=== PATIENT | male | born 1950 | race Caucasian/White ===

== ENCOUNTER → 2017-06-18 11:09 | Outpatient (CLI) | payer OTHER, SELFPAY ==
[2017-06-18 14:13] LABS: Absolute Lymphocyte Count 1.89 X10^3/ul (0.83-4.51); Absolute Neutrophil Count 6.3 X10^3/uL (2.0-7.7); Basophil# 0.03 X10^3/uL; Basophil% 0.3 % (0-1); Eosinophil# 0.26 X10^3/uL; Eosinophils% 2.8 % (0-5); Hematocrit 48.6 % (40-54); Hemoglobin 15.5 g/dl (13.0-16.5); Lymphocyte # 1.89 X10^3/ul (4.0); Lymphocyte % 20.6 % (19-41); Mean Corp Hgb Conc 31.9 g/gl (32-36); Mean Corpuscular Hgb 31.3 pg (27.0-32.0); Mean Corpuscular Volume 98.2 fL (80-94); Mean Platelet Vol. 12.1 fl (6.2-12.0); Monocyte# 0.67 X10^3/uL; Monocyte% 7.3 % (0-10); Neutrophil % 68.8 % (47-70); Platelet Count 166 K/mm3 (150-450); RBC Distribution Width CV 13.3 % (11.6-14.6); RBC Distribution Width SD 47.2 fl (35.1-43.9); Red Blood Count 4.95 M/mm3 (4.6-6.2); White Blood Count 9.2 K/mm3 (4.4-11.0)
[2017-06-18 14:17] LABS: POSITIVE COUNT NO; POSITIVE DIFFERENTIAL NO; POSITIVE MORPHOLOGY NO
[2017-06-18 14:43] LABS: ALB/GLOB Ratio 0.9 RATIO (0.9-2.4); AST(SGOT) 18 U/L (15-37); Alanine Aminotransfer ALT/SGPT 33 U/L (16-61); Albumin, Serum 3.6 g/dL (3.2-5.0); Alkaline Phosphatase 84 U/L (45-117); Anion Gap 4 (5-15); BUN 9 mg/dL (7-18); BUN/Creat Ratio 11.4 RATIO (10-20); Calcium,Total 8.9 mg/dL (8.5-10.1); Chloride 101 mmol/L (98-107); Cholesterol 190 mg/dL (200); Creatinine, Serum 0.79 mg/dL (0.70-1.30); EST Glomerular Filtration Rate 104 mL/min (>60); Est Glom Filt Rate - Afr Amer 126 mL/min (>60); Globulin 3.8 g/dL (2.2-4.2); Glucose 121 mg/dL (74-106); High Density Lipoprotein 49 mg/dL; Potassium 4.8 mmol/L (3.5-5.1); Protein, Total 7.4 g/dL (6.4-8.2); Sodium Level 137 mmol/L (136-145); Thyroid Stim Hormone (TSH) 1.18 uIU/mL (0.358-3.74); Triglycerides 90 mg/dL; Very Low Density Lipoprotein 18 mg/dL (5-40)
[2017-06-18 18:33] LABS: Microalbumin,Random Urine 11.5 mg/L (NO RANGE EST.); Microalbumin:Creatinine Ratio 6.8 mg/g CRE (<30 mg/g CRE)
[2017-06-19 09:55] LABS: HEPATITIS B SURFACE AG Negative (Negative); Hepatitis A AB, Total Negative (Negative); Hepatitis A IgM Antibody Negative (Negative); Hepatitis B Core AB IgM Negative (Negative); Hepatitis B Core Ab Total Negative (Negative); Hepatitis C Ab 0.1 s/co ratio (0.0-0.9)
[2017-06-19 13:55] LABS: Hep B Surface Antibodies Non Reactive (.)
== END ==
PROVIDERS: Family Provider Internal Medicine; PCP Internal Medicine; Visit Provider Nurse Practitioner
DX: I10 Essential (primary) hypertension (principal); M25.471 Effusion, right ankle; M25.472 Effusion, left ankle
CPT/HCPCS: 36415; 80053; 80061; 82043; 82570; 84443; 85025; 86704; 86705; 86706; 86708; 86709; 86803; 87340

== ENCOUNTER → 2017-11-27 10:31 | Outpatient (CLI) | payer OTHER, SELFPAY ==
[2017-11-27 11:27] LABS: Color, Urine Yellow (Yellow); Glucose, Dipstick Normal (Normal); Ketone-Dipstick Negative (Negative); Leukocyte Esterase-Dipstick 25 /ul (Negative); Nitrite-Dipstick Negative (Negative); Occult Blood-Urine Negative /ul (Negative); Protein-Dipstick 30 mg/dl (Negative); Urine Bilirubin Dipstick Negative (Negative); Urine Clarity Clear (Clear); Urine Urobilinogen 4 mg/dl (Normal)
[2017-11-27 11:29] LABS: Absolute Lymphocyte Count 2.47 X10^3/ul (0.83-4.51); Absolute Neutrophil Count 5.8 X10^3/uL (2.0-7.7); Basophil# 0.02 X10^3/uL; Basophil% 0.2 % (0-1); Eosinophil# 0.37 X10^3/uL; Eosinophils% 3.9 % (0-5); Hematocrit 44.8 % (40-54); Hemoglobin 14.4 g/dl (13.0-16.5); Lymphocyte # 2.47 X10^3/ul (4.0); Lymphocyte % 26.3 % (19-41); Mean Corp Hgb Conc 32.1 g/gl (32-36); Mean Corpuscular Hgb 31.4 pg (27.0-32.0); Mean Corpuscular Volume 97.8 fL (80-94); Mean Platelet Vol. 12.4 fl (6.2-12.0); Monocyte# 0.69 X10^3/uL; Monocyte% 7.3 % (0-10); Neutrophil # 5.81 X10^3/uL (2.7-7.7); POSITIVE COUNT NO; POSITIVE DIFFERENTIAL NO; POSITIVE MORPHOLOGY NO; Platelet Count 158 K/mm3 (150-450); RBC Distribution Width SD 45.5 fl (35.1-43.9); Red Blood Count 4.58 M/mm3 (4.6-6.2); White Blood Count 9.4 K/mm3 (4.4-11.0)
[2017-11-27 11:40] LABS: Hemoglobin A1c 7.3 % (4.2-6.3)
[2017-11-27 11:46] LABS: Microalbumin,Random Urine 15.3 mg/L (NO RANGE EST.); Microalbumin:Creatinine Ratio 7.9 mg/g CRE (<30 mg/g CRE)
[2017-11-27 11:58] LABS: AST(SGOT) 18 U/L (15-37); Alanine Aminotransfer ALT/SGPT 38 U/L (16-61); Albumin, Serum 3.4 g/dL (3.2-5.0); Alkaline Phosphatase 73 U/L (45-117); Anion Gap 6 (5-15); BUN 16 mg/dL (7-18); BUN/Creat Ratio 19.3 RATIO (10-20); Calcium,Total 8.5 mg/dL (8.5-10.1); Chloride 106 mmol/L (98-107); Cholesterol 170 mg/dL (200); Creatinine, Serum 0.83 mg/dL (0.70-1.30); EST Glomerular Filtration Rate 98 mL/min (>60); Est Glom Filt Rate - Afr Amer 118 mL/min (>60); Globulin 3.5 g/dL (2.2-4.2); Glucose 120 mg/dL (74-106); High Density Lipoprotein 45 mg/dL; PSA,Total - Annual Screen 1.19 ng/mL (0.00-4.00); Potassium 4.5 mmol/L (3.5-5.1); Protein, Total 6.9 g/dL (6.4-8.2); Sodium Level 143 mmol/L (136-145); Triglycerides 70 mg/dL; Very Low Density Lipoprotein 14 mg/dL (5-40)
== END ==
PROVIDERS: Family Provider Nurse Practitioner; PCP Nurse Practitioner; Visit Provider Nurse Practitioner
DX: I10 Essential (primary) hypertension (principal); Z12.5 Encounter for screening for malignant neoplasm of prostate; E11.9 Type 2 diabetes mellitus without complications
CPT/HCPCS: 36415; 80053; 80061; 81002; 82043; 82570; 83036; 84153; 85025; G0103

== ENCOUNTER → 2017-12-08 08:39 | Outpatient (CLI) | payer OTHER, SELFPAY ==
--- NOTE | 2017-12-08 08:47 | ECHOCS_ITS ---
Reason For Study: Dyspnea/ Hypoxemia Procedure This was a 2D Doppler, Color Flow transthoracic echocardiogram. Contrast injection was performed. Exam performed in department. Left Ventricle Mild concentric left ventricular hypertrophy. The estimated ejection fraction is 65 %. Stage 1 diastolic dysfunction. No regional wall motion abnormalities noted. Right Ventricle Normal size and thickness. Normal systolic function. Atria Normal left atrium. Normal right atrium. Normal atrial septum. Mitral Valve The mitral valve is structurally normal. No prolapse or stenosis seen. Tricuspid Valve Normal tricuspid valve. Trivial tricuspid valve insufficiency. Right ventricular systolic pressure estimated to be 41 mmHg. Mild pulmonary hypertension. Aortic Valve Trisinus/trileaflet aortic valve. Mild focal aortic valve thickening. Mild restriction of the aortic valve. Mild aortic stenosis. Peak aortic valve gradient 23 mmHg. Mean aortic valve gradient 9 mmHg. Pulmonic Valve The pulmonic valve is not well visualized. Great Vessels Normal aortic root. Normal arch. Normal inferior vena cava. Inferior vena cava collapse with sniff. Pericardium/Pleural No pericardial effusion. Medication 22 gauge I.V. with prn adaptor inserted into right arm. Diluted definity 2ml given slow IV push to enhance endocardial definition. MMode/2D Measurements & Calculations LVIDd: 4.4 cm IVSd: 1.4 cm LVOT diam: 2.0 cm LVIDs: 2.7 cm LVPWd: 1.5 cm LVOT area: 3.2 cm2 FS: 37.3 % Ao root diam: 3.5 cm LAV(MOD-bp): 48.5 ml LVAd ap4: 44.6 cm2 ACS: 1.4 cm LAV(MOD-bp) Indexed: 19.3 ml/m2 EDV(MOD-sp4): 156.4 ml LA dimension: 4.0 cm LAV(MOD-sp2): 56.4 ml EDV(sp4-el): 159.3 ml LAV(MOD-sp4): 43.3 ml LVAs ap4: 27.0 cm2 ESV(MOD-sp4): 71.4 ml ESV(sp4-el): 70.0 ml EF(MOD-sp4): 54.3 % EF(sp4-el): 56.1 % SV(MOD-sp4): 85.0 ml SV(sp4-el): 89.3 ml Aortic Valve Planimetry: 1.8 cm2 LA A4 area: 17.3 cm2 RA A4 area: 18.8 cm2 Time Measurements MV dec time: 0.20 sec Doppler Measurements & Calculations MV E max baljeet: 76.9 cm/sec Lat Peak E' Baljeet: 11.2 cm/sec Med Peak E' Baljeet: 9.3 cm/sec MV A max baljeet: 95.2 cm/sec E/E' lat: 6.9 E/E' med: 8.3 MV E/A: 0.81 MV V2 max: 94.4 cm/sec MV P1/2t max bajleet: 93.4 cm/sec Ao V2 max: 239.3 cm/sec MV max P.6 mmHg MV P1/2t: 57.5 msec Ao max P.9 mmHg MV V2 mean: 60.7 cm/sec MV dec slope: 475.5 cm/sec2 Ao V2 mean: 132.2 cm/sec MV mean P.7 mmHg MVA(P1/2t): 3.8 cm2 Ao mean P.7 mmHg MV V2 VTI: 24.7 cm Ao V2 VTI: 47.3 cm MVA(VTI): 3.6 cm2 ALLAN(I,D): 1.9 cm2 ALLAN(V,D): 1.7 cm2 LV V1 max: 125.1 cm/sec SV(LVOT): 87.7 ml PA V2 max: 86.7 cm/sec LV V1 max P.3 mmHg LV V1 mean P.9 mmHg LV V1 mean: 78.4 cm/sec LV V1 VTI: 27.1 cm TR max baljeet: 298.1 cm/sec TR max P.5 mmHg Interpretation Summary Mild concentric left ventricular hypertrophy. The estimated ejection fraction is 65 %. Stage 1 diastolic dysfunction. Trivial tricuspid valve insufficiency. Right ventricular systolic pressure estimated to be 41 mmHg. Mild pulmonary hypertension. Mild aortic stenosis. The study was technically difficult. There is no comparison study available. Contrast injection was performed. Ordering Physician: Francisco Hill Referring Physician: Francisco Hill Performed By: Chente Conway RCS
== END ==
PROVIDERS: Family Provider Nurse Practitioner; PCP Nurse Practitioner; Visit Provider Internal Medicine Pulmonary Disease
DX: R06.00 Dyspnea, unspecified (principal); R09.02 Hypoxemia
CPT/HCPCS: 93306; Q9957; A4216; C8929

== ENCOUNTER 2019-03-02 08:16 | Outpatient (RCR) | payer MEDICARE, SELFPAY | END 2019-03-02 23:59 | LOC: DC 08:16 | PROVIDERS: Family Provider Nurse Practitioner; PCP Nurse Practitioner; Visit Provider Nurse Practitioner | DX: Z71.3 Dietary counseling and surveillance (principal); E11.65 Type 2 diabetes mellitus with hyperglycemia | CPT/HCPCS: G0108 ==

== ENCOUNTER 2019-03-29 08:00 | Outpatient (RCR) | payer MEDICARE, SELFPAY | END 2019-04-01 23:59 | LOC: DC 08:00 | PROVIDERS: Family Provider Nurse Practitioner; PCP Nurse Practitioner; Visit Provider Nurse Practitioner | DX: Z71.3 Dietary counseling and surveillance (principal); E11.65 Type 2 diabetes mellitus with hyperglycemia | CPT/HCPCS: 97802; G0108 ==

== ENCOUNTER 2019-05-16 08:29 | Outpatient (RCR) | payer MEDICARE, SELFPAY | END 2019-06-02 23:59 | LOC: DC 08:29 | PROVIDERS: Family Provider Nurse Practitioner; PCP Nurse Practitioner; Visit Provider Nurse Practitioner | DX: Z71.3 Dietary counseling and surveillance (principal); E11.65 Type 2 diabetes mellitus with hyperglycemia | CPT/HCPCS: 97803 ==

== ENCOUNTER 2019-07-25 11:12 | Outpatient (RCR) | payer MEDICARE, SELFPAY | END 2019-07-25 23:59 | disposition home or self-care (01) | LOC: DC 11:12 | PROVIDERS: Family Provider Nurse Practitioner; PCP Nurse Practitioner; Visit Provider Nurse Practitioner | DX: Z71.3 Dietary counseling and surveillance (principal); E11.65 Type 2 diabetes mellitus with hyperglycemia | CPT/HCPCS: 97803 ==

== ENCOUNTER → 2020-07-17 16:37 | Outpatient (CLI) | payer MEDICARE, SELFPAY ==
--- NOTE | 2020-07-17 16:42 | CT_ITS ---
STUDY: CT ABDOMEN AND PELVIS WITH CONTRAST REASON FOR EXAM: Male, 70 years old. ABD PAIN/ SUSPECTED BILIARY OBSTRUCTION RADIATION DOSAGE (If Supplied By Facility): CTDIvol = ( 15.88 ) mGy, DLP = ( 1144.90 ) mGycm TECHNIQUE: Transaxial images were obtained from the dome of the diaphragm to the symphysis pubis with oral contrast. Oral and amp;amp; IV REDICAT and amp;amp; 100 CC ISO 370 was administered. Sagittal and coronal images were reconstructed. Individualized dose optimization techniques were used for this CT. COMPARISON: None. FINDINGS: The visualized lung bases are unremarkable. The visualized portions of the heart are within normal limits. Normal liver. There are surgical clips in the gallbladder fossa consistent with a prior cholecystectomy. Normal spleen. Normal pancreas. Normal bilateral adrenal glands. Normal right kidney. Normal left kidney. Normal visualized stomach. Normal small intestine. There are multiple colonic diverticula consistent with diverticulosis. The appendix is visualized and appears normal. Normal abdominal aorta. Normal inferior vena cava. Normal retroperitoneum. Irregular wall thickening of the posterior wall of the base of the bladder and correlation with cystoscopy would be useful to exclude mass. There is a small umbilical hernia containing fat. Normal osseous structures. CT/Abdomen/Pelvis WITH Contrast IMPRESSION: Irregular wall thickening of the posterior base of the bladder worrisome for mass and correlation with cystoscopy would be useful. Electronically Signed: Eren Huitron MD at 14:30 EDT Tel , Service support ,
[2020-07-17 17:05] LABS: EGFR FINGERSTICK > 60.0000 mL/min (>60)
== END ==
PROVIDERS: PCP Nurse Practitioner; Referring Provider Nurse Practitioner; Visit Provider Nurse Practitioner
DX: R10.9 Unspecified abdominal pain (principal)
CPT/HCPCS: 74177; Q9967

== ENCOUNTER 2020-08-21 07:37 | Day surgery (SDC) | payer MEDICARE, SELFPAY ==
[2020-08-05 10:32] VITALS: BMI 40.0
--- NOTE | 2020-08-16 12:59 | EKG12_ITS ---
Test Reason : PREOP Blood Pressure : / mmHG Vent. Rate : 096 BPM Atrial Rate : 096 BPM P-R Int : 176 ms QRS Dur : 138 ms QT Int : 372 ms P-R-T Axes : 050 067 052 degrees QTc Int : 469 ms Sinus rhythm with Fusion complexes and Premature atrial complexes Right bundle branch block Abnormal ECG Confirmed by MAZIN DE LEON, ALEX ([id number]), dictionary editor ALYSA SMITH ([id number]) on 08/19/2020 8:46:41 AM Referred By: Jaden Adkins Confirmed By:ALEX RETANA MD
[2020-08-16 15:23] LABS: Hematocrit 46.1 % (40-54); Mean Corp Hgb Conc 32.5 g/dL (32-36); Mean Corpuscular Hgb 30.8 pg (27.0-32.0); Mean Corpuscular Volume 94.7 fL (80-94); Mean Platelet Vol. 11.7 fl (6.2-12.0); Platelet Count 243 K/mm3 (150-450); RBC Distribution Width CV 12.4 % (11.6-14.6); RBC Distribution Width SD 43.4 fl (35.1-43.9); Red Blood Count 4.87 M/mm3 (4.6-6.2); White Blood Count 11.4 K/mm3 (4.4-11.0)
[2020-08-16 15:50] LABS: Anion Gap 3 (5-15); BUN 18 mg/dL (7-18); BUN/Creat Ratio 18.9 RATIO (10-20); Calcium,Total 9.3 mg/dL (8.5-10.1); Chloride 103 mmol/L (98-107); Creatinine, Serum 0.95 mg/dL (0.70-1.30); EST Glomerular Filtration Rate 83 mL/min (>60); Est Glom Filt Rate - Afr Amer 100 mL/min (>60); Glucose 100 mg/dL (74-106); Potassium 4.1 mmol/L (3.5-5.1); Sodium Level 135 mmol/L (136-145)
[2020-08-16 15:56] LABS: Hemoglobin A1c 6.1 % (3.8-5.6)
[2020-08-21] VITALS (7 sets, daily range): BP systolic 117–141; BP diastolic 71–82; PULSE 74–89; RESP 16–18; TEMP 36.2–36.9; O2SAT 93–97; BMI 41.2
[2020-08-21] MEDS: Lactated Ringers 1,000 ML 100 ML IV ×2 (08:38→11:07)
[2020-08-21] MEDS: Cefazolin 2 GM in 0.9% Normal Saline 100 ML IV (09:40)
--- NOTE | 2020-08-21 09:45 | PCM.HP.STD ---
Problem List (1) Bladder tumor Status: Acute History of Present Illness Date of Admission: 08/21/20 Chief Complaint: Large bladder tumors The patient is a 70 year old male who presented with gross hematuria and cystoscopy is found to have multiple large bladder tumors around the trigone and bladder neck area today he presents for transurethral resection of these tumors Past Medical History Medical History: Medical History (Last Updated 08/05/20 @ 10:36 by Aimee Kyle) Diabetes mellitus E11.9 h/o back fusion COPD (chronic obstructive pulmonary disease) J44.9 HTN (hypertension) I10 Allergies codeine Adverse Reaction (Verified 08/21/20 08:08) Muscle cramping, GI upset Home Medications: Ambulatory Orders Medication Instructions Recorded aspirin 81 mg tablet,delayed 81 mg PO DAILY 08/05/20 release chlorthalidone 25 mg tablet 25 mg PO DAILY 08/05/20 cholecalciferol (vitamin D3) 25 5,000 unit PO DAILY 08/05/20 mcg (1,000 unit) capsule cyclobenzaprine 5 mg tablet 5 mg PO PRN PRN 08/05/20 lisinopril 10 mg tablet 10 mg PO DAILY 08/05/20 melatonin 3 mg capsule 3 mg PO HS PRN 08/05/20 metformin 500 mg tablet,extended 1,000 mg PO BID 08/05/20 release 24 hr rosuvastatin 5 mg tablet 5 mg PO QODAY 08/05/20 Budesonide/Formoterol 160/4.5 2 puff INHALATION BID PRN 08/14/20 [Symbicort 160/4.5 Mcg Inhaler (SP)] Fluticasone/Vilanterol [Breo 1 puff IH DAILY 08/14/20 Ellipta 200-25 Mcg INH] Surgical History: Surgical History (Last Updated 08/05/20 @ 10:36 by Aimee Kyle) History of cholecystectomy Z90.49 Surgical History: no surgical history Smoking Status: Current every day smoker Tobacco Use: Cigarettes Review of Systems Constitutional: Denies: Chills, Fever, Weight Change HEENT: Denies: Head Aches, Sinus Congestion, Sinus Drainage Cardiovascular: Denies: Chest Pain, Palpitations Respiratory: Denies: Cough, Shortness of breath at rest, Sputum production Gastrointestinal: Denies: Abdominal Pain, Nausea, Vomiting Genitourinary: Denies: Dysuria Musculoskeletal: Denies: Joint Pain, Joint Tenderness Skin: Denies: Rash, Wounds Neurological: Denies: Numbness, Tingling, Focal weakness Psychiatric: Denies: Anxiety, Depression, Homicidal Ideations, Suicidal Ideations Hematologic/ Lymphatic: Denies: Easy Bruising, Easy Bleeding VTE Information - Inpt Only VTE Present on Admission: No - Physical Exam Vitals/I&O's: Vital Signs Temp Pulse Resp BP Pulse Ox 98.5 F 89 18 137/82 H 96 08/21/20 08:18 08/21/20 08:18 08/21/20 08:18 08/21/20 08:18 08/21/20 08:18 Oxygen Delivery Method Room Air Weight: 137.8 kg Body Mass Index (BMI) 41.2 General: Alert, Oriented x3, Cooperative HEENT: Atraumatic, PERRLA, EOMI, Normocephalic Neck: Supple, No JVD, Negative Carotid Bruits Lungs: Clear to auscultation, Normal air movement Cardiovascular: Regular rate, No murmurs Abdomen: Bowel Sounds Present, Soft, Non Tender Extremities: No edema, Capillary Refill Less than 3 Seconds Skin: No rashes, No breakdown Musculoskeletal: No Tenderness to Palpation of Joints or Extremities Neurological: Cranial nerves II-XII grossly intact Psych/Mental Status: Normal Affect, Appropriate Microbiology Past 72 Hours 08/20/20 13:07 Interface Orders SARS-CoV-2 Antigen (Rapid) - Final Current Medications Cefazolin Sodium 2 gm/ Sodium (Chloride) 110 mls @ 150 mls/hr IV PREOP ONE Stop: 08/21/20 10:38 Lactated Ringer's () 1,000 mls @ 100 mls/hr IV .Q10H JENN Last Admin: 08/21/20 08:38 Dose: 100 mls/hr Documented by: Assessment/Plan All Active Problems (Last Updated 08/05/20 @ 10:36 by Aimee Kyle) Bladder tumor (Acute) Plan to proceed with a transurethral resection of bladder tumors multiple enlarged.
--- NOTE | 2020-08-21 09:48 | DCINST_ITS ---
Discharge Diet: Light diet - advance as tolerated Discharge Activity: May not drive while taking narcotic pain medications. Instructions: Treating Bladder Cancer: TUR (Transurethral Resection) Allergies/Adverse Reactions: Allergies codeine Adverse Reaction (Verified 08/21/20 08:08) Muscle cramping, GI upset Medications to take at Discharge aspirin 81 mg tablet,delayed release 81 mg PO DAILY 08/05/20 chlorthalidone 25 mg tablet 25 mg PO DAILY 08/05/20 cholecalciferol (vitamin D3) 25 mcg (1,000 unit) capsule 5,000 unit PO DAILY 08/05/20 cyclobenzaprine 5 mg tablet 5 mg PO PRN PRN 08/05/20 lisinopril 10 mg tablet 10 mg PO DAILY 08/05/20 melatonin 3 mg capsule 3 mg PO HS PRN 08/05/20 metformin 500 mg tablet,extended release 24 hr 1,000 mg PO BID 08/05/20 rosuvastatin 5 mg tablet 5 mg PO QODAY 08/05/20 Budesonide/Formoterol 160/4.5 [Symbicort 160/4.5 Mcg Inhaler (SP)] 2 puff INHALATION BID PRN 08/14/20 Fluticasone/Vilanterol [Breo Ellipta 200-25 Mcg INH] 1 puff IH DAILY 08/14/20 Ciprofloxacin [Cipro] 500 mg PO BID #10 tab 08/21/20 Hydrocodone Bitart/Apap 5-325 [Blackduck 5MG-325MG] 1 tablet PO Q4H PRN PRN 7 Days #14 tablet 08/21/20 The following prescriptions were given: Ciprofloxacin [Cipro] 500 mg PO BID #10 tab Transmission Status: Pending to [facility] Hydrocodone Bitart/Apap 5-325 [Blackduck 5MG-325MG] 1 tablet PO Q4H PRN PRN 7 Days #14 tablet PRN Reason: Pain Transmission Status: Sent to [facility] Primary Care Physician: Chelsea Garcia CHECK EXAMINER, CHECK EXAMINER-C [Primary Care Provider] - Test Results: Test results from this visit will be discussed in further detail at your follow- up appointment, if applicable. Please Follow Up With: Jaden Adkins MD When: in 2 weeks, please call to make an appointment.
--- NOTE | 2020-08-21 09:55 | BLB_PTH ---
PATIENT: ADDI GONG LOC: [facility] U#:[id number] AGE/SX: 70/M ROOM: RE08/21/[address]: Dr. Jaden Adkins MD : 1950 BED: DIS: 08/21/2020 SPEC #: [id number] RECD: 08/21/20 13:17 STATUS: EFFIE RE #: [id number] SURINDER: 08/21/20 09:[address]: Jaden Adkins DEPT: SURGICAL PATHOLOGY RECD BY: Vidya Russell ENTERED: 08/21/20 13:45 SP TYPE: TURB OTHR DR: MD Chelsea Tyler, ASSOCIATE PROJECT MANAGER-C Tissues: Urinary bladder, NOS Procedures: Surgery Specimen Level V HEADER OPERATION: Cysto, transurethral resection bladder tumor, [employer] PRE-OP DIAGNOSIS: Bladder tumor TISSUE SUBMITTED: Bladder tumor MICROSCOPIC DIAGNOSIS Bladder tumor, TUR: Papillary urothelial carcinoma. See cancer checklist below. AM:kellie 08/22/2020 COMMENT BLADDER CANCER (TUR) SUMMARY Procedure: Transurethral resection of bladder (TURBT) Tumor site: Not specified Histologic type: Papillary urothelial carcinoma Histologic grade: 1-2 (WHO, low grade) Tumor configuration: Papillary Muscularis propria : Not present in biopsy. Lymphvascular invasion: Not identified Tumor extension: Confined to urothelium. Additional pathologic findings: None The above summary is in compliance with [employer] [place] [employer] (CAP) Cancer Protocols Checklist and [place] Joint Committee on Cancer (AJCC), Staging Manual, 8th Ed. MICROSCOPIC DESCRIPTION Slides are reviewed. GROSS DESCRIPTION Received in fixative is one container labeled with the patient's name and designated bladder tumor. The specimen consists of multiple irregular fragments of light lennon soft tissue that in aggregate measure 2.5 x 1.5 x 0.2 cm. The specimen is totally submitted in one cassette. / SJ:kellie 08/21/20 TC:0 CPT: 97066
[2020-08-21] MEDS: Lubricating Jelly 60 GM Tube 30 GM TOPICAL (09:59)
--- NOTE | 2020-08-21 10:20 | PCM.OPRPT ---
Problem List (1) Bladder tumor Status: Acute Report of Operation Date of Procedure: 08/21/20 Pre-Operative Diagnosis: bladder tumors multiple, total size greater than 5 cm. Post-Operative Diagnosis: Same Surgery/Procedure Performed:: Cystoscopy transurethral resection of multiple tumors large Description of Surgical Findings:: Patient presented to the hospital for treatment of a tumor that was found in the bladder with a very large bladder tumor. Patient understands is possible it may not be able to resect the entire tumor. Patient also understands is possible that the patient may need multiple procedures or more invasive procedures to cure him of this cancer. Patient was taken back to the operating room after smooth induction of anesthesia the patient was placed supine on the table. The patient was placed in dorsolithotomy position. The urethra and genitals prepped and draped in usual sterile fashion. I went into the bladder with a 30 degree lens and a cystoscope and identified the tumor the tumor was about 5 centimeters in size and occupying dome, left lateral wall and posterior wall of the bladder. The right and left ureteral orifice were identified. The tumor was not involved with ureteral orifice. I then placed the resectoscope and the bladder and resected the entire tumors down to the muscle. And then cauterized the resection base to obtained hemostasis. We then placed the catheter in the bladder and the patient was taken back to the PACU in stable condition. Type of Anesthesia:: General Drains: none
[2020-08-21 11:01] LABS: Bedside Glucose 133 mg/dL (70-110)
[2020-08-21 11:06] LABS: Bedside Glucose 103 mg/dL (70-110)
== END 2020-08-21 12:30 | disposition home or self-care (01) ==
LOC: SDC 07:38 → AC 07:38
PROVIDERS: Anesthesiology; PCP Nurse Practitioner; Referring Provider Urology; Visit Provider Urology
PROC: 0TBB8ZZ Excision of Bladder, Via Natural or Artificial Opening Endoscopic (ICD-10-PCS; CPT 52240; principal; 2020-08-21 09:45)
DX: C67.9 Malignant neoplasm of bladder, unspecified (principal); Z20.822 Contact with and (suspected) exposure to COVID-19; I10 Essential (primary) hypertension; E11.9 Type 2 diabetes mellitus without complications; J44.9 Chronic obstructive pulmonary disease, unspecified; Z79.82 Long term (current) use of aspirin; Z79.84 Long term (current) use of oral hypoglycemic drugs; F17.210 Nicotine dependence, cigarettes, uncomplicated; Z79.899 Other long term (current) drug therapy
CPT/HCPCS: 52240; 36415; 80048; 82962; 83036; 85027; 87426; 88307; 93005; C9803; J7120; J2405

== ENCOUNTER → 2021-01-03 14:38 | Outpatient (CLI) | payer MEDICARE, SELFPAY ==
--- NOTE | 2021-01-03 14:38 | MRI_ITS ---
STUDY: MRI LUMBAR SPINE WITHOUT CONTRAST REASON FOR EXAM: Male, 70 years old. pain TECHNIQUE: Standardized fat and water weighted pulse sequences were obtained in the sagittal and axial planes. COMPARISON: X-ray 08/05/2020 FINDINGS: T12-L1: Normal endplates. Normal disc height, hydration and morphology. Normal bilateral facet joints. Normal central canal and bilateral lateral recesses. Normal bilateral intervertebral neural foramina. Normal lumbar lordosis. There is no substantial scoliosis. Normal conus medullaris that terminates at the L1/L2. L1-2: Normal endplates. Normal disc height, hydration and morphology. Normal bilateral facet joints. Normal central canal and bilateral lateral recesses. Normal bilateral intervertebral neural foramina. L2-3: Normal endplates. Normal disc height, hydration and morphology. Normal bilateral facet joints. Normal central canal and bilateral lateral recesses. Normal bilateral intervertebral neural foramina. L3-4: Normal endplates. Normal disc height, hydration and morphology. Normal bilateral facet joints. Normal central canal and bilateral lateral recesses. Normal bilateral intervertebral neural foramina. L4-5: Normal endplates. Normal disc height, hydration and morphology. Normal bilateral facet joints. Normal central canal and bilateral lateral recesses. Normal bilateral intervertebral neural foramina. L5-S1: Mild broad disc protrusion produces mild spinal stenosis and mild bilateral neural foraminal stenosis. Normal visualized sacral ala. Mild friction related edema in the posterior subcutaneous fat. MRI/Spine Lumbar (Routine) IMPRESSION: Mild focal degenerative disc disease at L5/S1 as described above. Electronically Signed: Eren Huitron MD at 16:19 EDT Tel , Service support ,
== END ==
PROVIDERS: PCP Nurse Practitioner; Referring Provider Orthopaedic Surgery; Visit Provider Orthopaedic Surgery
DX: M48.062 Spinal stenosis, lumbar region with neurogenic claudication (principal)
CPT/HCPCS: 72148

== ENCOUNTER 2021-06-30 16:58 | Outpatient (CLI) | payer MEDICARE, SELFPAY ==
--- NOTE | 2021-06-30 | CYSPIN_PTH ---
PATIENT: ADDI GONG LOC: [facility] U#:[id number] AGE/SX: 71/M ROOM: RE06/30/[address]: Dr. Jaden Adkins MD : 1950 BED: DIS: 06/30/2021 SPEC #: [id number] RECD: 07/01/21 08:08 STATUS: EFFIE REDelmer #: [id number] SURINDER: 06/30/21 00:[address]: Jaden Adkins DEPT: CYTOLOGY RECD BY: Guy Herrera ENTERED: 07/01/21 08:09 SP TYPE: CYSPIN FL OTHR DR: Chelsea Garcia, CALL CENTER COORDINATOR-C Tissues: Urine Procedures: Pap Stain (control) Special Stain Group II Cytospin Fluid HEADER OPERATION: Not noted PRE-OP DIAGNOSIS: Neoplasm of bladder TISSUE SUBMITTED: Urine for cytology DIAGNOSIS CYTOLOGY Urine for cytology (cytospin): Negative for malignant cells. Acute inflammation. See comment. SJ:kellie 07/02/2021 COMMENT Degenerated urothelial cells are also noted. Clinical correlation and appropriate follow up are necessary. Please make reference to previous specimen ([id number]) bladder tumor, TUR with diagnosis of ?papillary urothelial carcinoma.? CYTOLOGY STUDY Slides are reviewed. CYTOLOGY GROSS Received is 40 ml of cloudy gold fluid labeled with the patient's name and and designated per the requisition as urine. Submitted for cytology preparation. / kellie 07/01/2021 TC:2 CPT: 86058
[2021-06-30 17:09] LABS: Cytology, Body Fluid / CSF SEE PATHOLOGY REPORT
== END 2021-06-30 23:59 | disposition home or self-care (01) ==
LOC: LABSPEC 17:00
PROVIDERS: PCP Nurse Practitioner; Referring Provider Urology; Visit Provider Urology
DX: C67.2 Malignant neoplasm of lateral wall of bladder (principal)
CPT/HCPCS: 88108; 88313

== ENCOUNTER 2022-03-16 13:36 | Outpatient (CLI) | payer MEDICARE, SELFPAY ==
--- NOTE | 2022-03-16 13:43 | ECHOCS_ITS ---
Version 2 Reason For Study: Murmur Procedure This was a 2D Doppler, Color Flow transthoracic echocardiogram. The study was technically difficult. Contrast injection was performed. Exam performed in department. Left Ventricle Normal LV size. Mild concentric left ventricular hypertrophy. Left ventricular systolic function is normal. The estimated ejection fraction is 65 %. Stage 1 diastolic dysfunction. No regional wall motion abnormalities noted. Right Ventricle Normal RV size. Normal systolic function. Mitral Valve Normal mitral valve. Tricuspid Valve Normal tricuspid valve. Mild (1+) tricuspid valve insufficiency. Pulmonary artery systolic pressure is 46 mmHg. Aortic Valve Trisinus/trileaflet aortic valve. Mild focal aortic valve calcification. Peak aortic valve gradient 75 mmHg. Mean aortic valve gradient 41 mmHg. Severe aortic stenosis. The above gradients are likely overestimated. Pulmonic Valve The pulmonic valve is not well visualized. Great Vessels Normal aortic root. The pulmonary artery is normal size. Normal inferior vena cava. Pericardium/Pleural No pericardial effusion. Medication 20 gauge I.V. with prn adaptor inserted into right arm. Diluted definity 2.5ml given slow IV push to enhance endocardial definition. MMode/2D Measurements & Calculations LVIDd: 4.8 cm IVSd: 1.2 cm LVOT diam: 2.0 cm LVIDs: 2.6 cm LVPWd: 1.3 cm LVOT area: 3.2 cm2 RVDd: 4.0 cm FS: 46.4 % Ao root diam: 3.7 cm LAV(MOD-bp): 70.6 ml LA A4 area: 23.2 cm2 LA dimension: 4.1 cm LAV(MOD-bp) Indexed: 29.2 ml/m2 LAV(MOD-sp2): 66.1 ml LAV(MOD-sp4): 65.5 ml RA A4 area: 21.0 cm2 Time Measurements MV dec time: 0.20 sec Doppler Measurements & Calculations MV E max baljeet: 79.6 cm/sec Lat Peak E' Baljeet: 5.4 cm/sec Med Peak E' Baljeet: 11.3 cm/sec MV A max baljeet: 122.2 cm/sec E/E' lat: 14.8 E/E' med: 7.0 MV E/A: 0.65 MV V2 max: 119.6 cm/sec MV P1/2t max baljeet: 111.6 cm/sec Ao V2 max: 432.0 cm/sec MV max P.7 mmHg MV P1/2t: 44.4 msec Ao max P.9 mmHg MV V2 mean: 77.5 cm/sec MV dec slope: 735.7 cm/sec2 Ao V2 mean: 302.0 cm/sec MV mean P.8 mmHg Ao mean P.6 mmHg MV V2 VTI: 25.8 cm MVA(P1/2t): 5.0 cm2 Ao V2 VTI: 88.5 cm MVA(VTI): 4.1 cm2 AV (velocity ratio): 0.37 ALLAN(I,D): 1.2 cm2 ALLAN(V,D): 1.2 cm2 LV V1 max: 157.7 cm/sec SV(LVOT): 105.2 ml PA V2 max: 130.2 cm/sec LV V1 max P.0 mmHg LV V1 mean P.0 mmHg LV V1 mean: 114.0 cm/sec LV V1 VTI: 33.0 cm TR max baljeet: 316.7 cm/sec TR max P.2 mmHg ECHO/Echo Complete W/ Contrast Interpretation Summary Normal LV size. Mild concentric left ventricular hypertrophy. Left ventricular systolic function is normal. The estimated ejection fraction is 65 %. Stage 1 diastolic dysfunction. Mean aortic valve gradient 41 mmHg. Severe aortic stenosis. The above gradients are likely overestimated. Ordering Physician: Desiree Larsen Referring Physician: Desiree Larsen Performed By: Chente Conway RCS
== END 2022-03-16 23:59 | disposition home or self-care (01) ==
PROVIDERS: PCP Nurse Practitioner Family; Referring Provider Nurse Practitioner Family; Visit Provider Nurse Practitioner Family
DX: R01.1 Cardiac murmur, unspecified (principal)
CPT/HCPCS: 93306; Q9957; A4216; C8929

== ENCOUNTER 2022-06-08 07:12 | Day surgery (SDC) | payer MEDICARE, SELFPAY ==
--- NOTE | 2022-06-03 11:50 | RAD_ITS ---
INDICATION: as EXAMINATION/TECHNIQUE: X-RAY - XR Chest 2 Views COMPARISON: March 07, 2021. FINDINGS: LINES/DEVICES: None. LUNGS: No consolidation, edema or effusion. No pneumothorax. MEDIASTINUM AND CARDIOVASCULAR STRUCTURES: Cardiac silhouette not enlarged. Central airways and mediastinal contour are unremarkable. BONES AND SOFT TISSUES: Degenerative vertebral changes. RAD/Chest PA and Lateral IMPRESSION: No radiographic evidence of acute cardiopulmonary disease. Electronically Signed: Romero Newman DO at 22:26 EST Reading Location ID and State: [facility] / [place] Tel [phone], Service support ,
[2022-06-03 12:34] LABS: Absolute Lymphocyte Count 2.84 X10^3/uL (0.83-4.51); Absolute Neutrophil Count 7.4 X10^3/uL (2.0-7.7); Basophil# 0.06 X10^3/uL; Basophil% 0.5 % (0-1); Eosinophil# 0.39 X10^3/uL; Eosinophils% 3.4 % (0-5); Hemoglobin 14.9 g/dL (13.0-16.5); Lymphocyte # 2.84 X10^3/ul (0.83-4.51); Lymphocyte % 24.8 % (19-41); Mean Corp Hgb Conc 31.7 g/dL (32-36); Mean Corpuscular Hgb 30.6 pg (27.0-32.0); Mean Corpuscular Volume 96.5 fL (80-94); Mean Platelet Vol. 11.9 fl (6.2-12.0); Monocyte% 6.1 % (0-10); NRBC Flagged by Analyzer 0 % (0-5); Neutrophil # 7.41 X10^3/uL (2.7-7.7); Neutrophil % 64.9 % (47-70); Platelet Count 230 K/mm3 (150-450); RBC Distribution Width CV 12.4 % (11.6-14.6); RBC Distribution Width SD 44.5 fl (35.1-43.9); Red Blood Count 4.87 M/mm3 (4.6-6.2); White Blood Count 11.4 K/mm3 (4.4-11.0)
[2022-06-03 13:00] LABS: AST(SGOT) 8 U/L (15-37); Alanine Aminotransfer ALT/SGPT 15 U/L (16-61); Albumin, Serum 3.5 g/dL (3.2-5.0); Alkaline Phosphatase 67 U/L (45-117); Anion Gap 7 (5-15); BUN 16 mg/dL (7-18); BUN/Creat Ratio 16.5 RATIO (10-20); Bilirubin, Direct 0.11 mg/dL (0.00-0.30); Calcium,Total 9.1 mg/dL (8.5-10.1); Chloride 102 mmol/L (98-107); Cholesterol 187 mg/dL (200); Creatinine, Serum 0.97 mg/dL (0.70-1.30); EST Glomerular Filtration Rate 81 mL/min (>60); Est Glom Filt Rate - Afr Amer 98 mL/min (>60); Globulin 3.7 g/dL (2.2-4.2); Glucose 100 mg/dL (74-106); High Density Lipoprotein 55 mg/dL; Potassium 4.2 mmol/L (3.5-5.1); Protein, Total 7.2 g/dL (6.4-8.2); Sodium Level 139 mmol/L (136-145); Thyroid Stim Hormone (TSH) 1.11 uIU/mL (0.358-3.74); Triglycerides 69 mg/dL; Very Low Density Lipoprotein 14 mg/dL (5-40)
[2022-06-05 10:04] VITALS: BMI 37.4
--- NOTE | 2022-06-08 09:27 | CL.D_ITS ---
Patient Name: ADDI GONG Study Date: 06/08/2022 Performing: Candido Linn MD Ht: 72 inches 182.88 cm : 1950 Wt: 276 lbs 125.19 kg Age: 72 Gender: male BSA: 2.44 PROCEDURE(S) PERFORMED DC02-(31920)C/COR CLINICAL PROFILE AND INDICATIONS Indications: Valvular Disease Heart Failure: None Stress/Imaging Stress/Image Study Performed: No CAD Presentations: Other: Murmur CONCLUSIONS Non obstructive coronary arteries RECOMMENDATIONS Medical therapy DESCRIPTION OF PROCEDURE The patient arrived to the procedure lab. The risks and benefits of the procedure as well as a full description of our services here and current unavailability of surgical backup were fully explained to the patient and/or their significant other prior to the catheterization. The Timeout was completed, verifying the correct patient and procedure. The patient's procedural site was prepped and draped in the usual fashion. Local anesthetic was given subcutaneously to right radial region with Lidocaine 2%. Using a modified Seldinger technique, arterial access was obtained via the right radial artery, a 6Fr sheath was inserted. Right Coronary Artery selective angiography was then performed in multiple views using a 5 Fr. 4.0 [place] catheter. Left Coronary Artery selective angiography was performed in multiple views using a 5 Fr. 4.0 [place] catheter. LV to AO pullback pressures were then recorded.The arterial sheath was pulled and a TR Band was applied for hemostasis CORONARY ANGIOGRAPHY DOMINANCE: Right Dominant LEFT HEART ASSESSMENT Left Ventricular Ejection Fraction: by Echo 60 % Normal LV wall motion Normal Left Ventricular systolic function LEFT MAIN: Angiographically normal LEFT ANTERIOR DESCENDING ARTERY: Mild luminal irregularities CIRCUMFLEX ARTERY: Mild luminal irregularities RAMUS: Mild luminal irregularities RIGHT CORONARY ARTERY: No significant disease noted VALVE FINDINGS: Aortic Valve Calcification - moderate Aortic Valve Stenosis - moderate COMPLICATIONS No Complications PROCEDURE MEDICATIONS Fentanyl 50 mcg IV Versed 1 mg IV Versed 1 mg IV Oxygen: 2 L/min via nasal cannula Heparin given IA 06/08/2022 09:05:09 Verapamil 2.5mg, 3000 units of Heparin given IA 06/08/2022 09:05:09 SUMMARY OF HEMODYNAMIC DATA Time AIR REST ECG 08:33:33 Art 143/75 (100) 08:50:06 AO 127/75 (100) SA 09:06:42 LV 132/8, 17 09:12:34 LV 134/11, 19 09:12:40 LVp 118/67, 74 09:12:54 AOp 118/69 (90) 09:12:59 AIR REST 09:27:05 Signed By Candido Linn MD On 06/08/2022 10:14:10 Signed By Candido Linn MD On 06/08/2022 09:26:49 Candido Linn MD
--- NOTE | 2022-06-08 15:03 | ECHOL_ITS ---
Reason For Study: Aortic stenosis Procedure This was a limited 2D transthoracic echocardiogram. Portable in lab technologist holding room. Left Ventricle Normal LV size. Mild concentric left ventricular hypertrophy. Left ventricular systolic function is normal. The estimated ejection fraction is 60 %. No regional wall motion abnormalities noted. Right Ventricle Normal RV size. Normal systolic function. Atria Normal left atrium. Normal right atrium. Aortic Valve Peak aortic valve gradient 45 mmHg. Mean aortic valve gradient 26 mmHg. Mild aortic stenosis. Pulmonic Valve Normal pulmonic valve. Great Vessels Normal aortic root. The pulmonary artery is normal size. Normal inferior vena cava. Pericardium/Pleural No pericardial effusion. MMode/2D Measurements & Calculations LVIDd: 4.6 cm IVSd: 1.3 cm LVOT diam: 2.1 cm LVIDs: 2.3 cm LVPWd: 1.3 cm LVOT area: 3.6 cm2 RVDd: 3.4 cm FS: 50.2 % Ao root diam: 3.3 cm LAV(MOD-bp): 51.4 ml LA A4 area: 18.7 cm2 LAV(MOD-bp) Indexed: 21.0 ml/m2 LAV(MOD-sp2): 49.3 ml LAV(MOD-sp4): 46.4 ml LA dimension(2D): 3.7 cm RA A4 area: 16.2 cm2 Doppler Measurements & Calculations Ao V2 max: 325.4 cm/sec LV V1 max: 129.7 cm/sec SV(LVOT): 112.6 ml Ao max P.4 mmHg LV V1 max P.7 mmHg Ao V2 mean: 238.5 cm/sec LV V1 mean P.0 mmHg Ao mean P.6 mmHg LV V1 mean: 94.3 cm/sec Ao V2 VTI: 75.8 cm LV V1 VTI: 31.2 cm AV (velocity ratio): 0.41 ALLAN(I,D): 1.5 cm2 ALLAN(V,D): 1.4 cm2 ECHO/Echo, Limited Study Interpretation Summary Normal LV size. Mild concentric left ventricular hypertrophy. Left ventricular systolic function is normal. The estimated ejection fraction is 60 %. Mean aortic valve gradient 26 mmHg. Mild aortic stenosis. Ordering Physician: Candido Linn Referring Physician: Candido Linn Performed By: Ines Muse RDCS
== END 2022-06-08 11:15 | disposition home or self-care (01) ==
PROVIDERS: PCP Nurse Practitioner Family; Referring Provider Internal Medicine Cardiovascular Disease; Visit Provider Internal Medicine Cardiovascular Disease
DX: I35.0 Nonrheumatic aortic (valve) stenosis (principal); J44.9 Chronic obstructive pulmonary disease, unspecified; R01.1 Cardiac murmur, unspecified; I10 Essential (primary) hypertension; E78.5 Hyperlipidemia, unspecified; G47.30 Sleep apnea, unspecified; Z79.82 Long term (current) use of aspirin; F17.200 Nicotine dependence, unspecified, uncomplicated; R93.1 Abnormal findings on diagnostic imaging of heart and coronary circulation
CPT/HCPCS: 36415; 71046; 80048; 80061; 80076; 84443; 85025; 93308; 93454; 99152; 99153; J7040; C1769; C1894; Q9967

== ENCOUNTER → 2023-02-01 | Outpatient (CLI) | payer MEDICARE, SELFPAY ==
--- NOTE | 2023-02-01 16:16 | MRI_ITS ---
STUDY: MRI LUMBAR SPINE WITHOUT CONTRAST REASON FOR EXAM: Male, 72 years old. Pain, spondylosis, intervertebral disc degen TECHNIQUE: Standardized fat and water weighted pulse sequences were obtained in the sagittal and axial planes. COMPARISON: MRI lumbar spine without contrast 01/03/2021. FINDINGS: T12-L1: (Sagittal only). Normal endplates. Normal disc height, hydration and morphology. Normal central canal and bilateral intervertebral neural foramina. Normal lumbar lordosis. There is no substantial scoliosis. Normal conus medullaris that terminates at the upper L1 vertebral body level. L1-2: Normal endplates. Normal disc height, hydration and morphology. Normal bilateral facet joints. Normal central canal and bilateral lateral recesses. Normal bilateral intervertebral neural foramina. L2-3: Normal endplates. Normal disc height, hydration and morphology. Normal bilateral facet joints. Normal central canal and bilateral lateral recesses. Normal bilateral intervertebral neural foramina. L3-4: Normal endplates. Normal disc height, hydration and morphology. Normal bilateral facet joints. Normal central canal and bilateral lateral recesses. Normal bilateral intervertebral neural foramina. L4-5: Normal endplates. Normal disc height, hydration and morphology. Normal bilateral facet joints. Normal central canal and bilateral lateral recesses. Normal bilateral intervertebral neural foramina. L5-S1: Normal endplates. Moderate disc space height narrowing. Normal facet joints. Capacious central canal and bilateral lateral recesses. Mild stenosis of the right intervertebral neural foramen. Normal left intervertebral neural foramen. T1 and T2 dark intensity focus in the right side of the S1 body is unchanged. This may be bone island. Normal visualized sacral ala. Normal visualized paraspinous soft tissue structures. MRI/Spine Lumbar (Routine) IMPRESSION: 1. No MRI evidence of lumbar extruded disc fragment, disc protrusion or nerve root displacement. 2. Mild stenosis of the right L5-S1 intervertebral neural foramen. 3. Probably small bone island in the right side of the S1 body. 4. No significant interval change when compared to 01/03/2021. Electronically Signed: Jenaro Cisneros MD at 15:57 EDT ,
== END | disposition home or self-care (01) ==
LOC: MRI 16:10
PROVIDERS: PCP Nurse Practitioner Family; Referring Provider Orthopaedic Surgery; Visit Provider Orthopaedic Surgery
DX: M51.37 Other intervertebral disc degeneration, lumbosacral region (principal); M47.817 Spondylosis without myelopathy or radiculopathy, lumbosacral region
CPT/HCPCS: 72148

== ENCOUNTER → 2023-02-05 | Outpatient (CLI) | payer MEDICARE, SELFPAY ==
--- NOTE | 2023-02-05 15:37 | MRI_ITS ---
STUDY: MRI RIGHT SHOULDER REASON FOR EXAM: Male, 72 years old. Pain, rule out cuff tear. TECHNIQUE: Standardized fat and water weighted pulse sequences were obtained in all 3 orthogonal planes. COMPARISON: Right shoulder radiographs dated 01/11/2023. FINDINGS: There is mild supraspinatus tendinosis without a full-thickness tear Normal infraspinatus tendon. Normal subscapularis tendon. Normal teres minor tendon. Normal supraspinatus muscle. Normal infraspinatus muscle. Normal subscapularis muscle. Normal teres minor muscle. Normal glenohumeral articulation. Normal humeral head and visualized proximal humerus. Normal biceps labral complex. Normal intracapsular long biceps tendon. Normal labrum. Normal capsulo-ligamentous complex. Normal rotator interval. There is hypertrophic acromioclavicular arthrosis, with inferior osteophyte formation, with mild effacement of the supraspinatus myotendinous junction (coronal PD series 4 image 19). There is a Type II morphology (curved), with a neutral orientation. There is no subacromial-subdeltoid bursal fluid. Normal visualized coracohumeral and coracoacromial ligaments. Normal quadrilateral space. Normal axillary space. Normal deltoid muscle. Normal trapezius muscle. MRI/Upper Ext Joint Only(Routine) IMPRESSION: Mild supraspinatus tendinosis without a full-thickness rotator cuff tear. Hypertrophic acromioclavicular arthrosis, with inferior osteophyte formation, with mild effacement of the supraspinatus myotendinous junction. Electronically Signed: Mic Figueroa MD at 8:40 EDT ,
== END | disposition home or self-care (01) ==
PROVIDERS: PCP Nurse Practitioner Family; Referring Provider Orthopaedic Surgery Sports Medicine; Visit Provider Orthopaedic Surgery Sports Medicine
DX: M25.511 Pain in right shoulder (principal)
CPT/HCPCS: 73221

== ENCOUNTER → 2024-01-11 | Outpatient (CLI) | payer MEDICARE, SELFPAY ==
--- NOTE | 2024-01-11 13:31 | ECHOCS_ITS ---
Reason For Study: AORTIC STENOSIS Procedure This was a 2D Doppler, Color Flow transthoracic echocardiogram. The study was technically difficult. Contrast injection was performed. Exam performed in department. Left Ventricle Normal LV size. Left ventricular systolic function is normal. The left ventricular ejection fraction is 65 %. Stage 1 diastolic dysfunction. No regional wall motion abnormalities noted. Right Ventricle Normal RV size. Normal systolic function. Atria Normal left atrium. Normal right atrium. Mitral Valve Normal mitral valve. Tricuspid Valve Normal tricuspid valve. Aortic Valve Trisinus/trileaflet aortic valve. Moderate focal aortic valve calcification. Peak aortic valve gradient 61 mmHg. Mean aortic valve gradient 40 mmHg. Moderate to severe aortic stenosis. Pulmonic Valve The pulmonic valve is not well visualized. Great Vessels Normal aortic root. The pulmonary artery is normal size. Inferior vena cava collapse with respiration. Pericardium/Pleural No pericardial effusion. MMode/2D Measurements & Calculations LVIDd: 4.4 cm IVSd: 1.5 cm LVOT diam: 2.1 cm LVIDs: 2.3 cm LVPWd: 1.3 cm LVOT area: 3.6 cm2 RVDd: 4.2 cm FS: 47.4 % asc Aorta Diam: 4.0 cm LAV(MOD-bp): 54.8 ml LVAd ap4: 31.1 cm2 LAV(MOD-bp) Indexed: 21.6 ml/m2 LVLd ap4: 8.7 cm LAV(MOD-sp2): 63.5 ml EDV(MOD-sp4): 89.2 ml LAV(MOD-sp4): 47.4 ml EDV(sp4-el): 94.2 ml LVAs ap4: 16.5 cm2 LVLs ap4: 7.2 cm ESV(MOD-sp4): 30.9 ml ESV(sp4-el): 31.9 ml EF(MOD-sp4): 65.3 % EF(sp4-el): 66.1 % LVAd ap2: 29.6 cm2 SV(MOD-sp4): 58.3 ml SV(MOD-sp2): 56.5 ml LVLd ap2: 8.4 cm EDV(MOD-sp2): 83.9 ml EDV(sp2-el): 88.4 ml LVAs ap2: 15.6 cm2 LVLs ap2: 7.3 cm ESV(MOD-sp2): 27.4 ml ESV(sp2-el): 28.4 ml EF(MOD-sp2): 67.4 % SV(sp4-el): 62.2 ml Ao sinus diam: 3.[address] Junction: 3.2 cm LA dimension(2D): 4.3 cm LA A4 area: 18.5 cm2 RA A4 area: 19.7 cm2 TAPSE: 1.9 cm Time Measurements MV dec time: 0.33 sec Doppler Measurements & Calculations MV E max baljeet: 103.6 cm/sec Lat Peak E' Baljeet: 7.6 cm/sec Med Peak E' Baljeet: 10.4 cm/sec MV A max baljeet: 109.8 cm/sec E/E' lat: 13.7 E/E' med: 10.0 MV E/A: 0.94 MV dec slope: 316.0 cm/sec2 Ao V2 max: 388.5 cm/sec LV V1 max: 111.2 cm/sec Ao max P.6 mmHg LV V1 max P.9 mmHg Ao V2 mean: 307.6 cm/sec LV V1 mean P.1 mmHg Ao mean P.4 mmHg LV V1 mean: 85.0 cm/sec Ao V2 VTI: 85.3 cm LV V1 VTI: 25.0 cm AV (velocity ratio): 0.29 ALLAN(I,D): 1.1 cm2 ALLAN(V,D): 1.0 cm2 SV(LVOT): 90.3 ml PA V2 max: 95.4 cm/sec PA max PG (full): 1.2 mmHg ECHO/Echo Complete W/ Contrast Interpretation Summary Normal LV size. Left ventricular systolic function is normal. The left ventricular ejection fraction is 65 %. Stage 1 diastolic dysfunction. Moderate focal aortic valve calcification. Mean aortic valve gradient 40 mmHg. Moderate to severe aortic stenosis. Contrast injection was performed. Ordering Physician: Candido Linn Referring Physician: Candido Linn MD Performed By: Zahra Hernandez RDCS
== END | disposition home or self-care (01) ==
PROVIDERS: PCP Nurse Practitioner Family; Referring Provider Internal Medicine Cardiovascular Disease; Visit Provider Internal Medicine Cardiovascular Disease
DX: I73.9 Peripheral vascular disease, unspecified (principal); I35.0 Nonrheumatic aortic (valve) stenosis; E78.5 Hyperlipidemia, unspecified; I10 Essential (primary) hypertension; R55 Syncope and collapse
CPT/HCPCS: 93306; Q9957; A4216; C8929

== ENCOUNTER → 2024-02-02 | Outpatient (CLI) | payer MEDICARE, SELFPAY ==
--- NOTE | 2024-02-02 08:43 | ECHOTEE_ITS ---
Reason For Study: Aortic Stenosis Medication KOREY probe 6VT-D (SN [id number]) passed without difficulty. No complications were noted. Cetacaine Topical [place] given X3 orally. Versed 2 mg given slow IVP. Fentanyl 50 mcg given slow IVP. Performed a rapid injection of agitated mix of 9 cc saline and 1cc air to assess for atrial septal defect. Left Ventricle Normal LV size. Left ventricular systolic function is normal. The left ventricular ejection fraction is 65 %. No regional wall motion abnormalities noted. Right Ventricle Normal RV size. Normal systolic function. Atria Bubble contrast study negative for right to left interatrial shunt. Normal atrial septum. The left atrium is moderately enlarged. No thrombus is detected in the left atrial appendage. Normal right atrium. Mitral Valve Normal mitral valve. Tricuspid Valve Normal tricuspid valve. Aortic Valve Trisinus/trileaflet aortic valve. Moderate focal aortic valve calcification. Moderate to severe aortic stenosis. Pulmonic Valve Normal pulmonic valve. Vessels Normal aortic root. Normal arch. The pulmonary artery is normal size. Pericardium No pericardial effusion. ECHO/Echo Transesophageal (KOREY) Interpretation Summary Normal LV size. Left ventricular systolic function is normal. The left ventricular ejection fraction is 65 %. The left atrium is moderately enlarged. Moderate focal aortic valve calcification. Moderate to severe aortic stenosis. By visualization the trileaflet aortic valve appears to open somewhat and does not appear to be severely stenotic. Ordering Physician: Ruchi Cummings Referring Physician: Desiree Larsen Performed By: Ines Muse RDCS
== END | disposition home or self-care (01) ==
PROVIDERS: PCP Nurse Practitioner Family; Referring Provider Physician Assistant Medical; Visit Provider Physician Assistant Medical
DX: I35.0 Nonrheumatic aortic (valve) stenosis (principal)
CPT/HCPCS: 93312; 93320; 93325; J7040; A4216

== ENCOUNTER → 2024-07-19 | Outpatient (CLI) | payer MEDICARE, SELFPAY ==
--- NOTE | 2024-07-19 13:27 | ECHOLC_ITS ---
Reason For Study Reason For Study: RE-EVALUATE AORTIC STENOSIS Procedure This was a limited 2D transthoracic echocardiogram. The study was technically difficult. Due to body habitus. Contrast injection was performed. Exam performed in department. Left Ventricle Normal LV size. Mild concentric left ventricular hypertrophy. Left ventricular systolic function is normal. The left ventricular ejection fraction is 65 %. No regional wall motion abnormalities noted. Right Ventricle Normal RV size. Normal systolic function. Atria The left atrium is mildly enlarged. Normal right atrium. Mitral Valve Normal mitral valve. Tricuspid Valve Normal tricuspid valve. Aortic Valve Trisinus/trileaflet aortic valve. Moderate focal aortic valve calcification. Peak aortic valve gradient 80 mmHg. Mean aortic valve gradient 49 mmHg. Severe aortic stenosis. Pulmonic Valve Normal pulmonic valve. Great Vessels Normal aortic root. The pulmonary artery is normal size. Normal inferior vena cava. Pericardium/Pleural No pericardial effusion. Medication 22 gauge I.V. with prn adaptor inserted into right arm. Diluted definity 2.0ml given slow IV push to enhance endocardial definition. MMode/2D Measurements & Calculations LVIDd: 4.9 cm IVSd: 1.4 cm LVOT diam: 2.1 cm LVIDs: 3.2 cm LVPWd: 1.3 cm RVDd: 4.3 cm FS: 34.3 % LVOT area: 3.4 cm2 Ao root diam: 4.0 cm LAV(MOD-bp): 68.8 ml LVAd ap4: 32.2 cm2 LAV(MOD-bp) Indexed: 27.1 ml/m2 LVLd ap4: 9.0 cm LAV(MOD-sp2): 62.2 ml EDV(MOD-sp4): 93.6 ml LAV(MOD-sp4): 67.4 ml EDV(sp4-el): 97.0 ml LVAs ap4: 16.4 cm2 LVLs ap4: 7.5 cm ESV(MOD-sp4): 29.8 ml ESV(sp4-el): 30.6 ml EF(MOD-sp4): 68.2 % EF(sp4-el): 68.5 % SV(MOD-sp4): 63.8 ml SV(sp4-el): 66.4 ml LA A4 area: 22.9 cm2 SI(MOD-sp4): 25.1 ml/m2 LA dimension(2D): 4.4 cm RA A4 area: 18.4 cm2 Doppler Measurements & Calculations Ao V2 max: 444.0 cm/sec LV V1 max: 142.9 cm/sec SV(LVOT): 101.4 ml Ao max P.2 mmHg LV V1 max P.2 mmHg Ao V2 mean: 332.4 cm/sec LV V1 mean P.4 mmHg Ao mean P.7 mmHg LV V1 mean: 99.1 cm/sec Ao V2 VTI: 85.1 cm LV V1 VTI: 29.9 cm AV (velocity ratio): 0.35 ALLAN(I,D): 1.2 cm2 ALLAN(V,D): 1.1 cm2 ECHO/Echo Limited w/Contrast Interpretation Summary Normal LV size. Left ventricular systolic function is normal. Mild concentric left ventricular hypertrophy. The left ventricular ejection fraction is 65 %. The left atrium is mildly enlarged. Mean aortic valve gradient 49 mmHg. Peak aortic valve gradient 80 mmHg. Severe aortic stenosis. Ordering Physician: Renard^Aaron^H^^COLD PATCHER, COLD PATCHER-C Referring Physician: Desiree Larsen Performed By: Eusebia Brown, ALEXANDER, RVT
== END | disposition home or self-care (01) ==
LOC: CVS 13:26
PROVIDERS: PCP Nurse Practitioner Family; Referring Provider Nurse Practitioner Family; Visit Provider Nurse Practitioner Family
DX: I35.0 Nonrheumatic aortic (valve) stenosis (principal)
CPT/HCPCS: 93308; Q9957; A4216; C8924

== ENCOUNTER → 2024-07-28 | Outpatient (CLI) | payer MEDICARE, SELFPAY ==
[2024-07-28 16:17] LABS: PSA,Total - Annual Screen 2.04 ng/mL (0.02-4.00)
== END | disposition home or self-care (01) ==
LOC: LAB 13:32
PROVIDERS: PCP Nurse Practitioner Family; Referring Provider Nurse Practitioner Family; Visit Provider Nurse Practitioner Family
DX: Z12.5 Encounter for screening for malignant neoplasm of prostate (principal)
CPT/HCPCS: 36415; 84153; G0103

== ENCOUNTER 2024-07-31 09:04 | Day surgery (SDC) | payer MEDICARE, SELFPAY ==
[2024-07-28 07:54] VITALS: BMI 41.5
[2024-07-28 14:17] LABS: Absolute Lymphocyte Count 2.64 X10^3/uL (0.83-4.51); Absolute Neutrophil Count 6.6 X10^3/uL (2.0-7.7); Basophil# 0.05 X10^3/uL; Basophil% 0.5 % (0-1); Eosinophil# 0.33 X10^3/uL; Eosinophils% 3.2 % (0-5); Hematocrit 44.7 % (40-54); Hemoglobin 14.4 g/dL (13.0-16.5); Lymphocyte # 2.64 X10^3/ul (0.83-4.51); Lymphocyte % 25.5 % (19-41); Mean Corp Hgb Conc 32.2 g/dL (32-36); Mean Corpuscular Hgb 30.4 pg (27.0-32.0); Mean Corpuscular Volume 94.5 fL (80-94); Mean Platelet Vol. 11.1 fl (6.2-12.0); Monocyte# 0.76 X10^3/uL; Monocyte% 7.3 % (0-10); NRBC Flagged by Analyzer 0 % (0-5); Neutrophil # 6.56 X10^3/uL (2.7-7.7); Neutrophil % 63.2 % (47-70); Platelet Count 216 K/mm3 (150-450); RBC Distribution Width SD 45.1 fl (35.1-43.9); Red Blood Count 4.73 M/mm3 (4.6-6.2); White Blood Count 10.4 K/mm3 (4.4-11.0)
[2024-07-28 16:19] LABS: Anion Gap 11 (5-15); BUN 13 mg/dL (4-19); BUN/Creat Ratio 14.3 RATIO (10-20); Calcium,Total 9.4 mg/dL (7.6-11.0); Carbon Dioxide 28.1 mmol/L (21.0-32.0); Chloride 99 mmol/L (98-108); Creatinine, Serum 0.91 mg/dL (0.70-1.20); EST Glomerular Filtration Rate 88 (>60); Estimated Creatinine Clearance 102.83 ml/min (50-250); Glucose 80 mg/dL (70-99); Potassium 4.4 mmol/L (3.3-5.1); Sodium Level 137 mmol/L (133-145)
--- NOTE | 2024-07-30 09:08 | HP.PCM_ITS ---
History and Physical Date of Admission: 07/31/24 This is a pleasant 74-year-old man who presents to the [facility] today for heart catheterization. He initially was undergoing a routine physical exam and noted to have a cardiac murmur. He also has a history of hypertension and hyperlipidemia and sleep apnea. He has occasionally complained of some chest discomfort and says that he occasionally also gets dizzy when he stands up quickly. His chest discomfort does not appear to be related to activity he has it every couple of weeks. It is not described as a heaviness per se. As part of his work-up he underwent an echocardiographic evaluation which demonstrated preserved ejection fraction of 60% to 65% and mild concentric left ventricular hypertrophy. He had a trileaflet aortic valve with focal calcification and a peak gradient of 75 mmHg and a mean gradient of 41 mmHg suggesting severe aortic stenosis. He underwent a cardiac catheterization in June of 2022 which demonstrated normal coronary arteries and moderate aortic valve stenosis. The echocardiogram repeated then demonstrated an ejection fraction of 60% with a mean aortic valve gradient of 26 mmHg. He also had a vascular study done. Repeat echocardiogram in July 2024 showed peak/mean aortic valve gradient of 80/49 mmHg. He denies chest, arm, jaw, or neck discomfort. He denies palpitations. He denies bilateral lower extremity edema. He denies claudication. He states shortness of breath with activity such as walking long distance. He attributes this to his back pain. He denies shortness of breath at rest, orthopnea, or PND. He denies chronic cough. He denies significant, sudden weight gain. He denies lightheadedness, dizziness, near-syncope, or syncope. He denies blood in urine, blood in stool, or epistaxis. He denies fever with chills. He denies myalgia. He denies fatigue. His exercise level has remained stable. 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 Essential hypertension COPD (chronic obstructive pulmonary disease) Diabetes mellitus Surgical History History of transurethral resection of bladder tumor (TURBT) (08/21/20) History of colonoscopy History of back surgery History of appendectomy History of tonsillectomy History of cholecystectomy Family History Other [place]'s disease Cancer Diabetes Heart disease Social History household members: significant other housing: house Smoking Status: Current every day smoker tobacco type: cigarettes Tobacco: How many years used: 50 quit status: has quit before alcohol intake: never caffeine: Yes Type: coffee Number of servings: 1 what type of physical activity do you participate in: none do you feel safe at home: Yes ROS Const Const: Negative for fatigue, weakness, body ache, fever(s) or chills ENT ENT: Negative for dizziness or Nosebleed/epistaxis Cardio Chest Pain: No Palpitations: No Edema: None Muscle aches with walking: None Resp Respiratory: Positive for SOB with activity; Negative for SOB at rest, SOB orthopnea\SOB lying down, Cough or paroxysmal nocturnal dyspnea GI GI: Negative nausea, vomiting blood/hematemesis, bright, red blood in stools or black,tarry stools : Negative for hematuria or frequent nighttime urination/ nocturia Musc Musc: Negative for muscle aches/ myalgia Skin Skin: Negative non-healing lesions or rash Neuro Neuro: Negative for dizziness, lightheadedness, near syncope, syncope, orthostatic symptoms or weakness Endo Endo: Negative for fatigue Allergy Allergy/Immunology: Negative for rash Cardiology Exam Const Appearance: cooperative, healthy appearing, comfortable and no acute distress Nutritional Appearance: well nourished and obese Orientation: alert, awake and oriented x3 Head Head: normal to inspection Ears: hearing grossly normal bilaterally Nose: external nose normal Face and Sinus: face symmetric Mouth: moist mucous membranes Eyes General: appearance normal, both eyes and all related structures Eyelids: eyelids normal EOM: EOM intact bilaterally Neck Neck: normal visual inspection and no JVD Carotids: normal carotid upstroke Chest Chest inspection: normal inspection of the chest, symmetric chest movement and normal respiratory effort; Negative cough Auscultation: Bilateral: Clear to Auscultation Cardio Rate: regular rate Rhythm: regular rhythm Heart sounds: S1 normal, S2 normal and murmur; Negative rub or gallop Murmur: Grade 3/6 and YOSSI loudest primary aortic area GI GI: normal to inspection and obese Neuro General: patient alert, patient awake, patient oriented x3 and CN's II-XI intact bilaterally Skin Skin: no rashes or lesions noted Extremities Pulses: Normal: Right Radial Pulse and Left Radial Pulse and Diminished: Right Posterior Tibial Pulse and Left Posterior Tibial Pulse Lower Extremity Edema: +1: Bilateral Psych Psychological: normal affect Supplemental Info Supplemental Information KOREY 02/02/2024: Normal LV size. Left ventricular systolic function is normal. The left ventricular ejection fraction is 65 %. The left atrium is moderately enlarged. Moderate focal aortic valve calcification. Moderate to severe aortic stenosis. By visualization the trileaflet aortic valve appears to open somewhat and does not appear to be severely stenotic. Echocardiogram from 07/19/2024: Interpretation Summary Normal LV size. Left ventricular systolic function is normal. Mild concentric left ventricular hypertrophy. The left ventricular ejection fraction is 65 %. The left atrium is mildly enlarged. Mean aortic valve gradient 49 mmHg. Peak aortic valve gradient 80 mmHg. Severe aortic stenosis. Echocardiogram 01/2024: Normal LV size. Left ventricular systolic function is normal. The left ventricular ejection fraction is 65 %. Stage 1 diastolic dysfunction. Moderate focal aortic valve calcification. Mean aortic valve gradient 40 mmHg. Moderate to severe aortic stenosis. Contrast injection was performed. Cardiac catheterization 06/08/2022: CONCLUSIONS Non obstructive coronary arteries CORONARY ANGIOGRAPHY DOMINANCE: Right Dominant LEFT HEART ASSESSMENT Left Ventricular Ejection Fraction: by Echo 60 % Normal LV wall motion Normal Left Ventricular systolic function LEFT MAIN: Angiographically normal LEFT ANTERIOR DESCENDING ARTERY: Mild luminal irregularities CIRCUMFLEX ARTERY: Mild luminal irregularities RAMUS: Mild luminal irregularities RIGHT CORONARY ARTERY: No significant disease noted VALVE FINDINGS: Aortic Valve Calcification - moderate Aortic Valve Stenosis - moderate Labs: Assessment and Plan Assessment and Plan (1) Aortic stenosis: Status: Acute Qualifiers: Cardiac valve disease etiology: nonrheumatic Qualified Code(s): I35.0 - Nonrheumatic aortic (valve) stenosis Plan: He was seen in cardiology office on 06/14/2024 and had a follow-up echocardiogram on 07/19/2024 that showed an LV function of 65%, mild concentric LVH, peak aortic valve gradient 80 mmHg, and a mean aortic valve gradient of 49 mmHg. His echocardiogram in January 2024 showed an LV function of 65% and a peak mean aortic valve gradient of 61/40 mmHg. He had a heart catheterization in June 2022 that showed nonobstructive coronary artery disease. He had a transesophageal echocardiogram in February 2024 that showed moderate to severe aortic valve stenosis. As his aortic valve appears to be progressing, he will proceed with heart catheterization to redefine coronary anatomy with long-term plan of referral for consideration of TAVR. (2) Essential hypertension: Status: Chronic Plan: Patient's blood pressure is well-controlled. We will continue to monitor. We will not make any medication regimen changes. (3) PVD (peripheral vascular disease): Status: Acute Plan: He does have evidence of peripheral vascular disease with carotid disease demonstrating mild to moderate hemodynamically flow disturbance, normal aortic ultrasound, and ankle-brachial indices at 0.90 on the right and 0.95 on the left. A referral was placed to vascular team to evaluate peripheral arterial disease to discern if changes or further workup is needed.
--- NOTE | 2024-07-31 09:12 | RAD_ITS ---
PROCEDURE: CHEST PA AND LATERAL 07/31/2024 REASON FOR EXAM: PRE-OPERATIVE: Left heart catheterization TECHNIQUE: Frontal and lateral views of the chest. COMPARISON: Chest radiographs 0 2 0123 FINDINGS: Hardware: None. Heart: Normal size and contour Mediastinum: Normal appearance Lungs: Lungs are clear. No pleural effusions. No pneumothorax. No significant interstitial thickening. Bones: Unremarkable RAD/Chest PA and Lateral IMPRESSION: No acute process. Reading [facility]
--- NOTE | 2024-07-31 12:22 | CL.D_ITS ---
Patient Name: ADDI GONG Study Date: 07/31/2024 Performing: Candido Linn MD Ht: 182.88 inches 464.5152 cm : 1950 Wt: 138.8 lbs 62.959 kg Age: 74 Gender: male BSA: 3.59 PROCEDURE(S) PERFORMED DC01-([id number])LHC/COR/LV CLINICAL PROFILE AND INDICATIONS Indications: Valvular Disease Heart Failure: None Stress/Imaging Stress/Image Study Performed: No CAD Presentations: No Sxs, no angina. CONCLUSIONS Non obstructive coronary arteries Normal LV size, wall motion,and systolic function Aortic Valve Stenosis- Severe RECOMMENDATIONS Referred for TAVR DESCRIPTION OF PROCEDURE The patient arrived to the procedure lab. The risks and benefits of the procedure as well as a full description of our services here and current unavailability of surgical backup were fully explained to the patient and/or their significant other prior to the catheterization. The Timeout was completed, verifying the correct patient and procedure. The patient's procedural site was prepped and draped in the usual fashion. Local anesthetic was given subcutaneously to right radial region with Lidocaine 2%. Using a modified Seldinger technique, arterial access was obtained via the right radial artery, a 6Fr sheath was inserted. Right Coronary Artery selective angiography was then performed in multiple views using a 5 Fr. 4.0 [place] catheter. Left Coronary Artery selective angiography was performed in multiple views using a 5 Fr. 4.0 [place] catheter. Left Ventriculography was performed in RENDON projection using a 5 Fr. [place] catheter. LV to AO pullback pressures were then recorded.The arterial sheath was pulled and a TR Band was applied for hemostasis CORONARY ANGIOGRAPHY DOMINANCE: Right Dominant LEFT HEART ASSESSMENT Left Ventricular Ejection Fraction: by LV Gram 80 % Normal LV wall motion Normal Left Ventricular systolic function LEFT MAIN: Distal 30% LEFT ANTERIOR DESCENDING ARTERY: Mild luminal irregularities less than 30% CIRCUMFLEX ARTERY: Mild luminal irregularities RAMUS: Mild luminal irregularities RIGHT CORONARY ARTERY: Mild luminal irregularities less than 30% VALVE FINDINGS: Aortic Valve Calcification - moderate Aortic Valve Stenosis - severe COMPLICATIONS No Complications PROCEDURE MEDICATIONS Fentanyl 50 mcg IV Versed 1 mg IV Versed 1 mg IV Oxygen: 2 L/min via nasal cannula Heparin given IA 07/31/2024 11:57:06 Verapamil 2.5mg, Ntg 100mcgs, 3000 units of Heparin given IA 07/31/2024 11:57:06 SUMMARY OF HEMODYNAMIC DATA Time AIR REST ECG 09:39:34 AO 131/79 (100) SA 12:00:30 LV 163/20, 34 12:12:07 LV 166/17, 24 12:12:15 LV 170/16, 31 12:14:02 LVp 166/21, 39 12:14:14 AOp 124/72 (94) 12:14:21 Signed By Candido Linn MD On 07/31/2024 12:22:02 Candido Linn MD
== END 2024-07-31 13:56 | disposition home or self-care (01) ==
PROVIDERS: Nurse Practitioner Family; PCP Nurse Practitioner Family; Referring Provider Internal Medicine Cardiovascular Disease; Visit Provider Internal Medicine Cardiovascular Disease
DX: I35.0 Nonrheumatic aortic (valve) stenosis (principal); J44.9 Chronic obstructive pulmonary disease, unspecified; E11.51 Type 2 diabetes mellitus with diabetic peripheral angiopathy without gangrene; I10 Essential (primary) hypertension; F17.210 Nicotine dependence, cigarettes, uncomplicated; Z79.51 Long term (current) use of inhaled steroids; Z79.82 Long term (current) use of aspirin; Z79.84 Long term (current) use of oral hypoglycemic drugs; Z79.899 Other long term (current) drug therapy
CPT/HCPCS: 71046; 80048; 85025; 93458; 99152; 99153; Q9967; C1769; C1894

== ENCOUNTER → 2024-09-12 | Outpatient (CLI) | payer MEDICARE, SELFPAY ==
--- NOTE | 2024-09-12 12:28 | CDU_ITS ---
Reason For Study Reason For Study: BILATERAL CAROTID DISEASE (MILD) Rt. Velocities/BP Lt. Velocities/BP Prox CCA 74.3/13.8 cm/sec. Prox CCA 97.7/16.7 cm/sec. Mid CCA 69.5/16.6 cm/sec. Mid CCA 81.8/14.2 cm/sec. Dist CCA 61.0/15.7 cm/sec. Dist CCA 62.1/*21.6 cm/sec. Prox ICA 49.0/10.3 cm/sec. Prox ICA 87.9/14.2 cm/sec. Mid ICA 62.3/19.7 cm/sec. Mid ICA 64.4/14.9 cm/sec. Dist ICA 46.2/15.0 cm/sec. Dist ICA 47.9/16.0 cm/sec. Rt. ICA/CCA = 62.3/69.5=0.9. Lt. ICA/CCA = 87.9/81.8=1.1. Prox ECA 67.6/12.8 cm/sec. Prox ECA 84.2/14.2 cm/sec. Rt. Vert. 39.6/9.4 cm/sec. Lt. Vert. 50.1/12.7 cm/sec. Right Extracranial There is intimal thickening but no significant atherosclerotic plaque noted in the right common carotid artery. There is intimal thickening but no significant atherosclerotic plaque noted in the right internal carotid artery. There is intimal thickening but no significant atherosclerotic plaque noted in the right external carotid artery. Antegrade flow is noted in the right vertebral artery. There is heterogeneous, irregular atherosclerotic plaque noted in the right bulb. Left Extracranial There is no significant atherosclerotic plaque noted in the left common carotid artery. There is intimal thickening but no significant atherosclerotic plaque noted in the left internal carotid artery. There is intimal thickening but no significant atherosclerotic plaque noted in the left external carotid artery. Antegrade flow is noted in the left vertebral artery. There is heterogeneous, irregular atherosclerotic plaque noted in the left bulb. Procedure Carotid Duplex 35976. This is a Carotid Duplex examination using B-mode, color flow and specral Doppler. Exam performed in department. VL/Carotid Duplex Ultrasound Interpretation Summary Mild (<50%) stenosis right extracranial internal carotid. Mild (<50%) stenosis left extracranial internal carotid. Patent and antegrade vertebrals bilaterally. Ordering Physician: Juhi Carson Referring Physician: Desiree Larsen Performed By: Eusebia Brown RDCS, RVT
== END | disposition home or self-care (01) ==
LOC: CVS 12:27
PROVIDERS: PCP Nurse Practitioner Family; Referring Provider Physician Assistant; Visit Provider Physician Assistant
DX: I65.23 Occlusion and stenosis of bilateral carotid arteries (principal)
CPT/HCPCS: 93880

== ENCOUNTER → 2024-10-11 | Outpatient (CLI) | payer MEDICARE, SELFPAY ==
--- NOTE | 2024-10-11 13:26 | PCM.CR.HP2 ---
CR - History & Physical General Arrival date:: 10/11/24 Arrival time:: 13:26 Date of Referral:: 09/29/24 Date of CR Evaluation:: 10/11/24 Referring Physician: Dr. Linn Primary Diagnosis: Heart valve replacement History of Present Cardiac Event Onset Date Heart valve replacement or repair:: Yes (09/18/2024) Medications Ambulatory Orders ?Medication ?Instructions ?Recorded aspirin 81 mg tablet,delayed 81 mg PO DAILY 08/05/20 release (Adult Low Dose Aspirin) chlorthalidone 25 mg tablet 25 mg PO DAILY 08/05/20 lisinopril 10 mg tablet 10 mg PO DAILY 08/05/20 budesonide 160 mcg-glycopyr 9 1 inh inhalation DAILY 05/05/22 mcg-formot 4.8 mcg/actuation HFA inhaler (Breztri Aerosphere) cholecalciferol (vitamin D3) 125 125 mcg PO DAILY 05/05/22 mcg (5,000 unit) tablet metformin 500 mg tablet,extended 500 mg PO BID 01/20/23 release 24 hr albuterol sulfate 90 mcg/actuation 2 puff inhalation Q6H PRN 11/09/23 aerosol inhaler shortness of breath or wheezing fluticasone propionate 50 1 spray intranasal BID 11/09/23 mcg/actuation nasal spray,suspension (Flonase Allergy Relief) loratadine 10 mg tablet (Allergy 10 mg PO DAILY 11/09/23 Relief (loratadine)) tamsulosin 0.4 mg capsule (Flomax) 0.4 mg PO QDAY 06/14/24 rosuvastatin 5 mg tablet 5 mg PO QODAY 90 days #45 tabs 09/24/24 Allergies Allergies codeine Adverse Reaction (Verified 07/19/24 11:13) Muscle cramping, GI upset Sleep Disorder Evaluation Hx of Sleep Apnea: Yes Do you snore loudly (louder than talking or can be heard through closed doors)?: No Do you often feel tired/ fatigued/ sleepy during daytime?: No Has anyone observed you stop breathing during sleep?: No History of Hypertension (for STOP score): Yes STOP Results: Negative Advanced Directives Advanced Directives Do you have a Healthcare Power of Orbitread Operator?: Yes Living Will: Yes Advance Directives Information Provided: No Advance Directives on File: No DNR Order?:: No Past Medical History Covid-19 Screening Physicial Symptoms Other Clinical Concerns Exposure Risk Pertinent Comorbidities 65 years or older:: Yes Has a serious heart condition:: Yes Severely obese (Body Mass Index of 40 or higher):: Yes Diabetic:: Yes Past Medical Illness Past Medical History Tendinosis of right rotator cuff M67.813 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 History of transurethral resection of bladder tumor (TURBT) (08/21/20) Z98.890, Z86.03 History of colonoscopy Z98.890 History of back surgery Z98.890 History of appendectomy Z90.49 History of tonsillectomy Z90.89 History of cholecystectomy Z90.49 Family History Summary Family History Other [place]'s disease Cancer Diabetes Heart disease Social History Smoking History Smoking Status: Current some day smoker Years Smokin Packs Smoked per Day: 1.5 (currently smoking around 1 cigarette a day) Alcohol Use Alcohol Usage: No Occupation Occupation (List type of work in comments):: Retired Social Environment Status Marital Status: Single Current Living Arrangements Living Environment:: Family (girlfriend) Children How many children do you have?: 2 Do any of your children live nearby?: Yes Safety Do you feel safe in your surroundings?: Yes Assistance Do you need any assistance at home?: no Review of Systems Review of Systems Hints Review of Present Symptoms: Reports Shortness of Breath with Exertion, PVD, Angina, Appetite - Normal, Appetite - Special Diet and Sleep - Normal; Denies Shortness of Breath at Rest, Operative Discomfort, Wound Healing, Dizziness/Lightheadedness, Fatigue, Heart Arrhythmia/Irregularities or Sexual Changes Pain Is Patient Pain Free?: No Pain Location: back Risk Factor Assessment Chief Complaint Chief Complaint: Heart valve replacement Vital Signs Pulse Ox: 93 Blood Pressure: 106/50 Pulse Pulse Rate: 79 Pulse Rhythm: Regular Hypertension How long have you been treated?: 7-8 years Blood Pressure Sitting - Right Arm: 106/50 Stress Stress: Home/Family Diabetes Diabetic History: Type II Nutrition Referral for Diabetes: No Obesity Height: 6 ft Weight:: 307 lb Weight in Pounds: 307.0 lbs Body Mass Index (BMI): 41.6 Nutritional Referral for Obesity: No Physical Inactivity Physical Inactivity: Recreational activity (rides bike) Risk Stratification Risk Guidelines: Moderate Risk: Risk Factor for Depression and Highest Risk: Risk Factor for Smoking, Risk Factor for Dyslipidemia, Risk Factor for Diabetes, Risk Factor for Obesity, Risk Factor for Hypertension and Risk Factor for Sedentary Lifestyle For Smoking Smoking Risk Guidelines For Dyslipidemia Dyslipidemia Risk Guidelines For Diabetes Mellitus Diabetes Risk Guidelines For Obesity/Overweight Obesity/Overweight Risk Guidelines For Hypertension Hypertension Risk Guidelines For Sedentary Lifestyle Sedentary Lifestyle Risk Guidelines For Depression Depression Risk Guidelines Family History Family History Other [place]'s disease Cancer Diabetes Heart disease Motivation Motivation to Participate On a scale of 1 to 10, how prepared are you to commit to attending program?: 10 What do you see as barriers to successfully being able to complete the program?: nothing What do you see as the benefits of succesfully completing the program? In other words, what do you hope to get out of participating in the program?: get better, more energy Are there issues you are dealing with that will interfere with completing the program?: no Do you have a spouse or signficant other, family or friends who will help support you to complete the program?: yes
--- NOTE | 2024-10-11 13:32 | CR.ITP_ITS ---
Diagnosis General Information Admitting Diagnosis: Heart valve rplacement Personal Learning Style:: Audio/Visual Barriers to Learning: No Barriers Stage of change r/t lifestyle modifications:: Contemplation Gave educational material for:: Treating Heart Disease, How The Heart Works, What it means to have Heart Disease, How Coronary Artery Disease is Diagnosed, Heart Procedures, What Heart Medications Do, Risk Factors & Modifications, Living an Active Life, Nutrition, Emotions & Heart Disease, Stress Management & Relaxation and Sleep Disorders & Heart Disease Education/Goals Cardiac Rehabilitation Goals Personal Goals: Initial Assessment: Quit smoking (participate in smoking cessation, Improve management of stress and emotions, Improve energy level, Participate in home exercise program, Get back to work, or to resume activities faster, Improve knowledge of cardiac disease, Improve muscle strength and endurance, Improve diet and eating habits (eat healthier), Control risk factors (learn risk factor modification) and Other goal: Scale for measuring improvement of personal goals Diagnosis & Disease Process Outcomes/Goals: Pt IDs own risk factors & lifestyle modifications by Session 10, Verbalizes symptoms of angina & response by session 3., Pt independently manages and Other Additional Outcomes/Goals: Plan/Interventions: Assist Pt to ID & engage in lifestyle modification to reduce CVD risk, Instruct on individual risk factors, Review symptoms of angina & emergency actions, Review secondary diagnosis & identify educational needs. and Other see comment 30 day Reassessments:: Not Met 30 day Reassessments:: Not Met 30 day Reassessments:: Not Met 30 day Reassessments:: Not Met Final Reassessments:: Not Met Safety Referral to Physical Therapy: No Referral to [facility] Case Management: No Fall Risk Assessed:: Yes Assistive Devices:: Cane Exercise - Initial Assessment Visit Date of Eval: 10/11/24 (initial eval ) Mets: Pre-: >3 METS for 30 minutes by discharge, >5 METS for 30 minutes by discharge, >7 METS for 30 minutes by discharge and Unable to meet goal due to: (see comment below) Physician Prescribed Exercise Modalities: Treadmill, Rower, Kyra Floresne AD-7, SciFit Stepper, SciFit Pro- II Ergometer and SciFit Lateral Ribbon Hanking Machine Operator Frequency: 3x/week for 12 weeks [36 sessions] Intensity: 60-80% of age predicted maximum heart rate reserve Duration: 30 - 45 minutes Current METSs:: 3 Target Heart Rate:: 88-108 Resting Blood Pressure: 106/50 EKG Type: SR RBBB Outcomes & Goals Goals:: Verbalizes understanding of THR, RPE & goal METS by session 6, Documents in home exercise log/reports 30 min aerobic 5 day/wk by DC, Demonstrates accurate pulse taking by DC and Other additional outcome/goals: see below Intervention & Plan Exercise Program Goals: Instruct on personal THR & RPE, Instruct on MET level & personal MET goal, Show patient to take own pulse /validate performance until accurate, Instruct on home exercise and Other additional plan/int Physical Activity Home Exercise Physical Activity - Home Exercise: Safe Exercise, Warm-up, Self-monitoring, Cool-Down, Home Exercise > 30 min Daily and Sitting Time <3 hours/daily Outcomes & Goals Outcomes/Goals: Demonstrates correct Warm-up/exercise Cool-Down (S3) if = 2.5 METs, Verbalizes symptoms of exercise intolerance by Session 3 (S3), Demonstrate safe equipment use (S3) & follows exercise prescrition (6) and Other: See below Intervention & Plan Plan/Intervention: Instruct warm-up & cool-down if exercising at > 2 METs, Instruct on symptoms of exercise intolerance & actions to take, Instruct & monitor on saf, Assess intial functional capacity & safety risk and Other See b [facility] Nutrition - Initial Assessment Program Goals Nutrition Program Goals Patient has diagnosis of Hyperlipidemia (ICD E78)?: Yes Visit Date of Eval: 10/11/24 (initial eval ) Cholesterol/Lipids (Other Core Measures) Determine presence & major risk factors that modify LDL goal: Cigarette smoking, Hypertension or hypertensive medication, Low HDL cholesterol <40 mg/dL*, Family history of premature CHD in Male < 55 years: female <65 yearsFa and Age men > 45 years; women >/= 55 years Outcomes/Goals: Pt IDs own risk factors & lifestyle modifications by Session 10, Verbalizes symptoms of angina & response by session 3., Pt independently manages and Other Additional Outcomes/Goals: Intervention/Plan: Advocate for lipid panel cholesterol medication if a pplicable, Instruct on personal lipid levels & lipid goals/NCEP guidelines, Instruct on cholesterol and Other additional plan/int Diabetes (Other Core Measures) Diabetes Type: Diagnosis Type II ICD-10 E11 Insulin dependent injection/pump?: No Non-Insulin Dependent?: Yes Do you monitor your blood sugar at home?: Yes Referral to Diabetic Clinic:: No Outcomes/Goals:: Able to state symptoms of, Able to state, Able to state and Other additional Intervention/Plan:: Instruct on, Refer to, Instruct on and Other Weight Mgt (Other Care) Height: 6 ft Weight:: 307 lb BMI: 41.6 Diagnosis Overweight/Obesity BMI> 30% ICD-10 E66: Yes Diagnosis High BMI/Morbid Obesity BMI> 35% ICD-10 Z68: Yes Outcomes/Goals: Pt sets, maintains & shows weight loss goal & trend during rehab and Other additional outcomes/goals Intervention/Plan: Instruct on ideal BMI & set weight loss goal w/patient, Assist pt to ID & incorporate diet changes for weight loss by S9, Refer to Structured Weight Loss program as appropriate, Encourage goal of using 250- 300dcal per session for weight loss and Other additional plan/interventions Healthy Eating Habits Will attend diet classes:: Yes Outcomes/Goals:: Consume diet rich in vegs,fruits,whole grain/high fiber,fish,lean meat, Limit sat/trans fats,cholesterol & added salts & sugars and Other additional outcome/goals: Intervention/Plan:: Assess current eating habits and Other Additional plan/interventions Education Gave educational materials for:: Signs & symptoms of hypoglycemia, Signs & symptoms of hyperglycemia, Relate diabetes to coronary artery disease and Healthy eating Core - Initial Assessment Visit Date of Eval: 10/11/24 (initial eval ) Medication Compliance Preventative Medication(s):: Aspirin, EARL inhibitor and Statin/lipid H/O mental health issues: depression, anxiety, or addiction?: No Doesn?t believe in the benefits of treatment?: No Believes medications are unnecessary or harmful?: No Has a concern about medication side effects?: No Expresses concern over the cost of medications?: No Outcomes/Goals: Verbalizes medications,desired effect & common side effects @ DC, Pt self-reports following medication regimen, Keeps card in wallet w/medications listed by DC and Other additional outcome/goals: Interventions/plans: Instruct on medication effects & side effects, Review medication list w/patient every two weeks, Instruct importance of taking meds as ordered & assist problem solving and Other additional Tobacco Use Tobacco Use: Cigarettes How many cigarettes do you smoke per day?: 1 Years Smokin Outcomes/Goals: Smoking cessation achieved or maintained by discharge, Identify aids/strategies for achieving smoking cessation by session 6 and Other additional outcome/goals Interventions/plan: Instruct on effects of smoking & provide smoking cessation resource, Assist pt to set quit date & provide encouragement, Assist pt to develop strategies to achieve/maintain quit date, Assist pt w/nicotine replacement & medication for cessation success and Other additional plan/inter ventions Hypertension Hypertension Diagnosis:: Hypertension ICD-10 I10 Resting Blood Pressure:: 106/50 [place] [employer] Hypertension Guidelines Outcomes/Goals: Able to verbalize/achieve optimal blood pressure <130/80, Incorporates diet changes & exercise for blood pressure control by DC and Other additional outcomes/goals Interventions/plan: Instruct on optimal blood pressure, hypertension & medications, Instruct on effects of sodium, alcohol, stress, exercise &hypertension and Other additional plan/interventions Tobacco Cessation Referral Smoking Cessation Referral:: No Individual Education/Counseling:: No Education Schedule Given:: Yes Psychosocial - Initial Assess VIsit Date of Eval: 10/11/24 (initial eval ) History of previous Mental disease:: No Target Goals Target Goals Psychosocial Test Tool Used:: PHQ-9 Questionnaire phq-9 Severity See PHQ-9 Score: 1 Referral to Behavioral Health PS - Interventions: Yes: Attend Stress Management Classes Outcomes/Goals: See list Psychosocial Outcomes/Goals:: ID's personal stressors & 2 strategies to manage stress by discharge and Other Additional outcome/goals: Intervention/Plan: See List Interventions/Plan:: Assess stressors,coping strategies & signs of derpression on admission, Instruct/assist pt to develop coping & personal stress Mgt strategies, Refer to Behavioral Health if appropriate, Refer to Physician if appropriate, Instruct patient to recognize signs & symptoms of depression, Instruct patient to recog and Other additional plan/intervention Patient Health Questionnaire PHQ-9 Screening Initial Assessment: 1. Little interest or pleasure in doing things: Not at all 2. Feeling down, depressed, or hopeless: Not at all 3. Trouble falling or staying asleep, or sleeping too much: Not at all 4. Feeling tired or having little energy: Not at all 5. Poor appetite or overeating: Several days 6. Feeling bad about yourself -- or that you are a failure or have let yourself or your family down: Not at all 7. Trouble concentrating on things, such as reading the newspaper or watching television: Not at all 8. Moving or speaking so slowly that other people could have noticed. Or the opposite - being so fidgety or restless that you have been moving around a lot more than usual: Not at all 9. Thoughts that you would be better off , or of hurting yourself in some way: Not at all How difficult have these problems made it for you to do your work, take care of things at home, or get along with other people?: Somewhat difficult Total Score: 1 KACIE-Q SV Test Statements CAD is a disease of the arteries in the heart: False Examples of risk factors for heart disease: True Angina is chest pain or discomfort: I Don't Know The benefits of resistance training include: True Eating more meat and dairy products: I Don't Know Anti-platelet medications such as aspirin are important: True The only effective way to manage stress: I Don't Know An exercise warm-up slowly increases heart rate: True Prepared, processed foods usually have high sodium: I Don't Know Depression is common after a heart attack: I Don't Know The statin medications lower cholesterol: True To control blood pressure, lower the amount of sodium: True If someone gets chest discomfort during walking: I Don't Know Transfats are partially hydrogenated vegetable oils: I Don't Know Sleep apnea that is not treated increases the risk: True To control cholesterol, one should become a vegetarian: I Don't Know Someone knows if he/she is exercising at the right level: I Don't Know Diabetes cannot be prevented with exercise & health eating: False Stress is a large risk for heart attack: True A diet that can help lower blood pressure is rich in: True Total Score Total Correct Responses: 10 Self-Efficacy 6-Item Scale Initial Assessment: We would like to know how confident you are in doing certain activities. Please select your confidence level for: Fatigue Select Number: 5 Physical Discomfort or Pain Select Number: 5 Emotional Distress Select Number: 6 Other Symptoms or Health Problems Select Number: 5 Different Tasks and Activities Select Number: 5 Medication Select Number: 5 Total Score:: 5 Nutrition Survey Nutrition Survey Instructions Scoring Instructions Nutrition Survey Initial: Have you lost >10 lbs over the past 2 months without trying?: Yes Are you following a special diet at home for diabetes, low fat, or low salt?: No Are you interested in meeting with a dietitian for help understanding your diet?: No Do you eat less than 3 meals a day?: Yes Do you eat fatty meats (sapp, sausage, ribs, etc), fried foods, desserts, large amounts of salad dressings, margarine, butter, or cheese most days?: Yes Do you have food allergies? [Enter types in comment field]: No Do you eat in restaurants more than 3 times a week?: No Do you season food with salt, seasoning salt, or garlic salt?: No Do you used canned, boxed, frozen meals, or soups, seasoning packets?: Yes Total Score:: 4 Exercise - 30-day Assessment Physician Prescribed Exercise Modalities: Treadmill, Rower, Schwinn Airdyne AD-7, SciFit Stepper, SciFit Pro- II Ergometer and SciFit Lateral Ribbon Hanking Machine Operator Exercise - 60-day Assessment Physician Prescribed Exercise Modalities: Treadmill, Rower, Schwinn Airdyne AD-7, SciFit Stepper, SciFit Pro- II Ergometer and SciFit Lateral [place] Exercise - 90-day Assessment Physician Prescribed Exercise Modalities: Treadmill, Rower, Schwinn Airdyne AD-7, SciFit Stepper, SciFit Pro- II Ergometer and SciFit Lateral Ribbon Hanking Machine Operator Exercise - Final/Discharge Physician Prescribed Exercise Modalities: Treadmill, Rower, Schwinn Airdyne AD-7, SciFit Stepper, SciFit Pro- II Ergometer and SciFit Lateral [place] Frequency: 3x/week for 12 weeks [36 sessions] Intensity: 60-80% of age predicted maximum heart rate reserve Current METSs:: 3 Target Heart Rate:: 88-108 Nutrition - 30-Day Assessment Weight Mgt (Other Care) Height: 6 ft Weight:: 307 lb BMI: 41.6 Nutrition - 60-Day Assessment Weight Mgt (Other Care) Height: 6 ft Weight:: 307 lb BMI: 41.6 Core - 30-Day Assessment Tobacco Use Years Smokin Core - Final Assessment Hypertension Resting Blood Pressure:: 106/50 [place] [employer] Hypertension Guidelines Core - 60-Day Assessment Hypertension Resting Blood Pressure:: 106/50 [place] [employer] Hypertension Guidelines Psychosocial - 30-Day Assess Target Goals Target Goals Referral to Behavioral Health PS - Interventions: Yes: Attend Stress Management Classes Psychosocial - 60-Day Assess Target Goals Target Goals Referral to Behavioral Health PS - Interventions: Yes: Attend Stress Management Classes Psychosocial - 90-Day Assess Target Goals Target Goals Referral to Behavioral Health PS - Interventions: Yes: Attend Stress Management Classes Psychosocial - Final Assessmen Target Goals Target Goals Psychosocial Test phq-9 Severity See PHQ-9 Score: 1 Referral to Behavioral Health PS - Interventions: Yes: Attend Stress Management Classes Nutrition - 90-Day Assessment Weight Mgt (Other Care) Height: 6 ft Weight:: 307 lb BMI: 41.6 Nutrition - Final Assessment Program Goals Patient has diagnosis of Hyperlipidemia (ICD E78)?: Yes Weight Mgt (Other Care) Height: 6 ft Weight:: 307 lb BMI: 41.6
[2024-10-11 13:50] VITALS: BMI 41.6
[2024-10-11 13:56] VITALS: BP 106/50; PULSE 79; O2SAT 93
[2024-10-11 14:31] VITALS: BP 106/50; BMI 41.6
== END | disposition home or self-care (01) ==
LOC: CR 13:16
PROVIDERS: PCP Nurse Practitioner Family; Referring Provider Internal Medicine Cardiovascular Disease; Visit Provider Internal Medicine Cardiovascular Disease
DX: Z95.2 Presence of prosthetic heart valve (principal); J44.9 Chronic obstructive pulmonary disease, unspecified; E11.9 Type 2 diabetes mellitus without complications; R06.02 Shortness of breath; I73.9 Peripheral vascular disease, unspecified; I20.9 Angina pectoris, unspecified; G47.30 Sleep apnea, unspecified; I10 Essential (primary) hypertension; E66.9 Obesity, unspecified; E78.5 Hyperlipidemia, unspecified; F17.210 Nicotine dependence, cigarettes, uncomplicated

== ENCOUNTER 2024-10-30 15:15 | Outpatient (RCR) | payer MEDICARE, SELFPAY ==
[2024-10-11 14:31] VITALS: BMI 41.6
== END 2024-10-30 23:59 ==
LOC: CR 15:15
PROVIDERS: PCP Nurse Practitioner Family; Referring Provider Internal Medicine Cardiovascular Disease; Visit Provider Internal Medicine Cardiovascular Disease
DX: Z95.2 Presence of prosthetic heart valve (principal); I35.0 Nonrheumatic aortic (valve) stenosis
CPT/HCPCS: 93798

== ENCOUNTER → 2024-11-06 | Outpatient (CLI) | payer MEDICARE, SELFPAY ==
[2024-10-11 14:31] VITALS: BMI 41.6
== END | disposition home or self-care (01) ==
LOC: CVS 12:28
PROVIDERS: PCP Nurse Practitioner Family; Referring Provider Nurse Practitioner Family; Visit Provider Nurse Practitioner Family
DX: Z95.2 Presence of prosthetic heart valve (principal)
CPT/HCPCS: 93306; Q9957; A4216; C8929

== ENCOUNTER 2024-11-24 15:15 | Outpatient (RCR) | payer MEDICARE, SELFPAY ==
[2024-10-11 14:31] VITALS: BMI 41.6
--- NOTE | 2024-11-08 08:30 | CR.ITP_ITS ---
Exercise - Initial Assessment Visit Session #:: 6 Physician Prescribed Exercise Modalities: SciFit Stepper, SciFit Pro-II Ergometer and SciFit Lateral Biomedical Equipment Support Specialist Nutrition - Initial Assessment Weight Mgt (Other Care) Height: 6 ft Weight:: 307 lb BMI: 41.6 Core - Initial Assessment Tobacco Use Years Smokin Psychosocial - Initial Assess Target Goals Target Goals Referral to Behavioral Health PS - Interventions: Yes: Attend Stress Management Classes Patient Health Questionnaire PHQ-9 Screening 30-Day Re-eval Assessment: 1. Little interest or pleasure in doing things: Not at all 2. Feeling down, depressed, or hopeless: Not at all 3. Trouble falling or staying asleep, or sleeping too much: Not at all 4. Feeling tired or having little energy: Not at all 5. Poor appetite or overeating: Several days 6. Feeling bad about yourself -- or that you are a failure or have let yourself or your family down: Not at all 7. Trouble concentrating on things, such as reading the newspaper or watching television: Not at all 8. Moving or speaking so slowly that other people could have noticed. Or the opposite - being so fidgety or restless that you have been moving around a lot more than usual: Not at all 9. Thoughts that you would be better off , or of hurting yourself in some way: Not at all How difficult have these problems made it for you to do your work, take care of things at home, or get along with other people?: Somewhat difficult Total Score: 1 Self-Efficacy 6-Item Scale 30-Day Re-eval Assessment: We would like to know how confident you are in doing certain activities. Please select your confidence level for: Fatigue Select Number: 5 Physical Discomfort or Pain Select Number: 5 Emotional Distress Select Number: 6 Other Symptoms or Health Problems Select Number: 5 Different Tasks and Activities Select Number: 5 Medication Select Number: 5 Total Score:: 5 Nutrition Survey Nutrition Survey Instructions Scoring Instructions Exercise - 30-day Assessment Visit Date of Eval: 11/08/24 Session #:: 6 Physician Prescribed Exercise Modalities: SciFit Stepper, SciFit Pro-II Ergometer and SciFit Lateral [place] Frequency: 2x/week for 18 weeks [36 sessions] Intensity: 60-80% of age predicted maximum heart rate reserve Duration: 30 - 45 minutes Current METSs:: 3.6 Target Heart Rate:: 88-108 Current RPE:: 12-12.5 Maximum Excercise HR:: 126 Resting Blood Pressure: 102/64 Maximum Exercise Blood Pressure: 122/70 EKG Type: NSR to ST with marked sinus arrhythmia, occas PAC, PVC Outcomes & Goals Goals:: Verbalizes understanding of THR, RPE & goal METS by session 6, Documents in home exercise log/reports 30 min aerobic 5 day/wk by DC, Demonstrates accurate pulse taking by DC and Other additional outcome/goals: see below Intervention & Plan Exercise Program Goals: Instruct on personal THR & RPE, Instruct on MET level & personal MET goal, Show patient to take own pulse /validate performance until accurate, Instruct on home exercise and Other additional plan/int Physical Activity Home Exercise Physical Activity - Home Exercise: Safe Exercise, Warm-up, Self-monitoring, Cool-Down, Home Exercise > 30 min Daily and Sitting Time <3 hours/daily Outcomes & Goals Outcomes/Goals: Demonstrates correct Warm-up/exercise Cool-Down (S3) if = 2.5 METs, Verbalizes symptoms of exercise intolerance by Session 3 (S3), Demonstrate safe equipment use (S3) & follows exercise prescrition (6) and Other: See below Intervention & Plan Plan/Intervention: Instruct warm-up & cool-down if exercising at > 2 METs, Instruct on symptoms of exercise intolerance & actions to take, Instruct & monitor on saf, Assess intial functional capacity & safety risk and Other See below 30-day Reassessments 30 day Reassessments:: Progressing Reassessment Notes & Comments:: RPE explained to pt. Pt demonstrates understanding in his daily sessions. Exercise - 60-day Assessment Physician Prescribed Exercise Modalities: SciFit Stepper, SciFit Pro-II Ergometer and SciFit Lateral Biomedical Equipment Support Specialist Exercise - 90-day Assessment Physician Prescribed Exercise Modalities: SciFit Stepper, SciFit Pro-II Ergometer and SciFit Lateral [place] Exercise - Final/Discharge Physician Prescribed Exercise Modalities: SciFit Stepper, SciFit Pro-II Ergometer and SciFit Lateral [place] Nutrition - 30-Day Assessment Program Goals Nutrition Program Goals Patient has diagnosis of Hyperlipidemia (ICD E78)?: Yes Visit Date of Eval: 11/08/24 Session #:: 6 Cholesterol/Lipids (Other Core Measures) Determine presence & major risk factors that modify LDL goal: Cigarette smoking, Hypertension or hypertensive medication, Low HDL cholesterol <40 mg/dL*, Family history of premature CHD in Male < 55 years: female <65 yearsFa and Age men > 45 years; women >/= 55 years Outcomes/Goals: Pt IDs own risk factors & lifestyle modifications by Session 10, Verbalizes symptoms of angina & response by session 3., Pt independently manages and Other Additional Outcomes/Goals: Intervention/Plan: Advocate for lipid panel cholesterol medication if applicable, Instruct on personal lipid levels & lipid goals/NCEP guidelines, Instruct on cholesterol and Other additional plan/int Diabetes (Other Core Measures) Diabetes Type: Diagnosis Type II ICD-10 E11 Insulin dependent injection/pump?: No Non-Insulin Dependent?: Yes Do you monitor your blood sugar at home?: Yes Referral to Diabetic Clinic:: No Weight Mgt (Other Care) Height: 6 ft Weight:: 307 lb BMI: 41.6 Diagnosis Overweight/Obesity BMI> 30% ICD-10 E66: Yes Diagnosis High BMI/Morbid Obesity BMI> 35% ICD-10 Z68: Yes Outcomes/Goals: Pt sets, maintains & shows weight loss goal & trend during rehab and Other additional outcomes/goals Intervention/Plan: Instruct on ideal BMI & set weight loss goal w/patient, Assist pt to ID & incorporate diet changes for weight loss by S9, Refer to Structured Weight Loss program as appropriate, Encourage goal of using 250- 300dcal per session for weight loss and Other additional plan/interventions 30 day Reassessments:: Progressing Reassessment Notes & Comments:: Pt to attend nutrition class. Heart healthy low sodium diet encouraged. Pt also has the option have a 1 on 1 meeting with our lamination builder. Healthy Eating Habits Will attend diet classes:: Yes Outcomes/Goals:: Consume diet rich in vegs,fruits,whole grain/high fiber,fish,lean meat, Limit sat/trans fats,cholesterol & added salts & sugars and Other additional outcome/goals: Intervention/Plan:: Assess current eating habits and Other Additional plan/interventions 30-day Reassessments:: Progressing Reassessment Notes & Comments:: Pt to attend nutrition class. Heart healthy low sodium diet encouraged. Education Gave educational materials for:: Signs & symptoms of hypoglycemia, Signs & symptoms of hyperglycemia, Relate diabetes to coronary artery disease and Healthy eating Nutrition - 60-Day Assessment Weight Mgt (Other Care) Height: 6 ft Weight:: 307 lb BMI: 41.6 Core - 30-Day Assessment Visit Date of Eval: 11/08/24 Session #:: 6 Medication Compliance Preventative Medication(s):: Aspirin, EARL inhibitor and Statin/lipid H/O mental health issues: depression, anxiety, or addiction?: No Doesn?t believe in the benefits of treatment?: No Believes medications are unnecessary or harmful?: No Has a concern about medication side effects?: No Expresses concern over the cost of medications?: No Outcomes/Goals: Verbalizes medications,desired effect & common side effects @ DC, Pt self-reports following medication regimen, Keeps card in wallet w/medications listed by DC and Other additional outcome/goals: Interventions/plans: Instruct on medication effects & side effects, Review medication list w/patient every two weeks, Instruct importance of taking meds as ordered & assist problem solving and Other additional Tobacco Use Tobacco Use: Cigarettes How many cigarettes do you smoke per day?: 1 Years Smokin Outcomes/Goals: Smoking cessation achieved or maintained by discharge, Identify aids/strategies for achieving smoking cessation by session 6 and Other additional outcome/goals Interventions/plan: Instruct on effects of smoking & provide smoking cessation resource, Assist pt to set quit date & provide encouragement, Assist pt to develop strategies to achieve/maintain quit date, Assist pt w/nicotine replacement & medication for cessation success and Other additional plan/interventions 30-day Reassessments:: Progressing Hypertension Hypertension Diagnosis:: Hypertension ICD-10 I10 Resting Blood Pressure:: 102/64 Citizen Of The [place] Heart Association Hypertension Guidelines Peak Exercise Blood Pressure:: 122/70 Outcomes/Goals: Able to verbalize/achieve optimal blood pressure <130/80, Incorporates diet changes & exercise for blood pressure control by DC and Other additional outcomes/goals Interventions/plan: Instruct on optimal blood pressure, hypertension & medications, Instruct on effects of sodium, alcohol, stress, exercise &hypertension and Other additional plan/interventions 30 day Reassessments:: Progressing Reassessment Notes & Comments:: Pt's BP's are within AHA normal limits. Will continue to monitor. Tobacco Cessation Referral Education Schedule Given:: Yes Psychosocial - 30-Day Assess VIsit Date of Eval: 11/08/24 Session #:: 6 History of previous Mental disease:: No Target Goals Target Goals Psychosocial Test Tool Used:: PHQ-9 Questionnaire phq-9 Severity See PHQ-9 Score: 1 Referral to Behavioral Health PS - Interventions: Yes: Attend Stress Management Classes Outcomes/Goals: See list Psychosocial Outcomes/Goals:: ID's personal stressors & 2 strategies to manage stress by discharge and Other Additional outcome/goals: Intervention/Plan: See List Interventions/Plan:: Assess stressors,coping strategies & signs of derpression on admission, Instruct/assist pt to develop coping & personal stress Mgt strategies, Refer to Behavioral Health if appropriate, Refer to Physician if appropriate, Instruct patient to recognize signs & symptoms of depression, Instruct patient to recog and Other additional plan/intervention 30-day Reassessments: 30 day Reassessments:: Progressing Reassessment Notes & Comments:: Pt denies any psychosocial issues at this time. Pt to attend stress management class. Will continue to monitor. Psychosocial - 60-Day Assess Target Goals Target Goals Referral to Behavioral Health PS - Interventions: Yes: Attend Stress Management Classes Outcomes/Goals: See list Psychosocial Outcomes/Goals:: ID's personal stressors & 2 strategies to manage stress by discharge and Other Additional outcome/goals: Psychosocial - 90-Day Assess Target Goals Target Goals Referral to Behavioral Health PS - Interventions: Yes: Attend Stress Management Classes Psychosocial - Final Assessmen Target Goals Target Goals Referral to Behavioral Health PS - Interventions: Yes: Attend Stress Management Classes Nutrition - 90-Day Assessment Weight Mgt (Other Care) Height: 6 ft Weight:: 307 lb BMI: 41.6 Nutrition - Final Assessment Weight Mgt (Other Care) Height: 6 ft Weight:: 307 lb BMI: 41.6
[2024-11-08 08:45] VITALS: BP 102/64; BMI 41.6
== END 2024-11-30 23:59 ==
LOC: CR 15:15
PROVIDERS: PCP Nurse Practitioner Family; Referring Provider Internal Medicine Cardiovascular Disease; Visit Provider Internal Medicine Cardiovascular Disease
DX: Z95.2 Presence of prosthetic heart valve (principal); I35.0 Nonrheumatic aortic (valve) stenosis
CPT/HCPCS: 93798

== ENCOUNTER → 2024-12-05 | Outpatient (CLI) | payer MEDICARE, SELFPAY ==
[2024-11-08 08:45] VITALS: BMI 41.6
--- NOTE | 2024-12-05 12:36 | ART_ITS ---
Reason For Study Reason For Study: Claudication Procedure A bilateral lower extremity continuous wave Doppler with analog waveform analysis,segmental pressures,and ankle brachial indexes without exercise. Left Segmental Pressures Left brachial= 135mmHg. Left posterior tibial artery = 169mmHg. Left dorsalis pedis artery = 146mmHg. Left digit = 130 mmHg. The left dorsalis pedis waveforms are triphasic. The left posterior tibial artery waveforms are triphasic. Right Segmental Pressures Right brachial= 127mmHg. Right posterior tibial artery = 163mmHg. Right dorsalis pedis artery = 187mmHg. Right digit = 106 mmHg. The right dorsalis pedis waveforms are triphasic. The right posterior tibial artery waveforms are biphasic. Indices The right ankle brachial index by the dorsalis pedis is 1.39. The right ankle brachial index by the posterior tibial artery is 1.21. The right digital-brachial index is 0.79. The left ankle brachial index by the dorsalis pedis is 1.08. The left ankle brachial index by the posterior tibial artery is 1.25. The left digital-brachial index is 0.96. VL/Lower Ext Art Exam w/o Exercis Interpretation Summary Right DANDY 1.39, normal. TBI and Doppler/PVR waveforms of the right leg normal a t rest. Left DANDY 1.25, normal. TBI and Doppler/PVR waveforms of the left leg normal at rest. Ordering Physician: Aaron Glynn Referring Physician: Desiree Larsen Performed By: Fany Arnold RVT
== END | disposition home or self-care (01) ==
LOC: CVS 12:23
PROVIDERS: PCP Nurse Practitioner Family; Referring Provider Nurse Practitioner Family; Visit Provider Nurse Practitioner Family
DX: I73.9 Peripheral vascular disease, unspecified (principal); I35.0 Nonrheumatic aortic (valve) stenosis
CPT/HCPCS: 93923

== ENCOUNTER → 2024-12-25 | Outpatient (CLI) | payer MEDICARE, SELFPAY ==
[2024-12-07 08:05] VITALS: BMI 41.6
[2024-12-25 16:16] LABS: Anion Gap 11 (5-15); BUN 20 mg/dL (4-19); BUN/Creat Ratio 21.7 RATIO (10-20); Calcium,Total 9.6 mg/dL (7.6-11.0); Carbon Dioxide 28.5 mmol/L (21.0-32.0); Chloride 99 mmol/L (98-108); Glucose 91 mg/dL (70-99); Potassium 4.6 mmol/L (3.3-5.1)
== END | disposition home or self-care (01) ==
LOC: LAB 13:08
PROVIDERS: PCP Nurse Practitioner Family; Referring Provider Nurse Practitioner Family; Visit Provider Nurse Practitioner Family
DX: I73.9 Peripheral vascular disease, unspecified (principal); I35.0 Nonrheumatic aortic (valve) stenosis; R06.3 Periodic breathing; I10 Essential (primary) hypertension
CPT/HCPCS: 36415; 80048

== ENCOUNTER 2024-12-29 15:15 | Outpatient (RCR) | payer MEDICARE, SELFPAY ==
[2024-11-08 08:45] VITALS: BMI 41.6
--- NOTE | 2024-12-07 07:45 | CR.ITP_ITS ---
Exercise - Initial Assessment Physician Prescribed Exercise Modalities: SciFit Stepper, SciFit Pro-II Ergometer and SciFit Lateral Bead Forming Machine Set Up Operator Nutrition - Initial Assessment Weight Mgt (Other Care) Height: 6 ft Weight:: 307 lb BMI: 41.6 Core - Initial Assessment Hypertension Resting Blood Pressure:: 124/60 [place] [employer] Hypertension Guidelines Psychosocial - Initial Assess Target Goals Target Goals Referral to Behavioral Health PS - Interventions: Yes: Attend Stress Management Classes Patient Health Questionnaire PHQ-9 Screening 60-Day Re-eval Assessment: 1. Little interest or pleasure in doing things: Not at all 2. Feeling down, depressed, or hopeless: Not at all 3. Trouble falling or staying asleep, or sleeping too much: Not at all 4. Feeling tired or having little energy: Not at all 5. Poor appetite or overeating: Several days 6. Feeling bad about yourself -- or that you are a failure or have let yourself or your family down: Not at all 7. Trouble concentrating on things, such as reading the newspaper or watching television: Not at all 8. Moving or speaking so slowly that other people could have noticed. Or the opposite - being so fidgety or restless that you have been moving around a lot more than usual: Not at all 9. Thoughts that you would be better off , or of hurting yourself in some way: Not at all How difficult have these problems made it for you to do your work, take care of things at home, or get along with other people?: Somewhat difficult Total Score: 1 Self-Efficacy 6-Item Scale 60-Day Re-eval Assessment: We would like to know how confident you are in doing certain activities. Please select your confidence level for: Fatigue Select Number: 5 Physical Discomfort or Pain Select Number: 5 Emotional Distress Select Number: 6 Other Symptoms or Health Problems Select Number: 5 Different Tasks and Activities Select Number: 5 Medication Select Number: 5 Total Score:: 5 Nutrition Survey Nutrition Survey Instructions Scoring Instructions Exercise - 30-day Assessment Physician Prescribed Exercise Modalities: SciFit Stepper, SciFit Pro-II Ergometer and SciFit Lateral [place] Exercise - 60-day Assessment Visit Date of Eval: 12/07/24 Session #:: 13 Physician Prescribed Exercise Modalities: SciFit Stepper, SciFit Pro-II Ergometer and SciFit Lateral [place] Frequency: 3x/week for 12 weeks [36 sessions] Intensity: 60-80% of age predicted maximum heart rate reserve Duration: 30 - 45 minutes Current METSs:: 4 Target Heart Rate:: 88-108 Current RPE:: 12 Maximum Excercise HR:: 108 Resting Blood Pressure: 118/58 Maximum Exercise Blood Pressure: 130/62 EKG Type: NSR to ST w/ marked sinus arrhythmia vs intermittent bigeminal pac, pvc's Outcomes & Goals Goals:: Verbalizes understanding of THR, RPE & goal METS by session 6, Documents in home exercise log/reports 30 min aerobic 5 day/wk by DC, Demonstrates accurate pulse taking by DC and Other additional outcome/goals: see below Intervention & Plan Exercise Program Goals: Instruct on personal THR & RPE, Instruct on MET level & personal MET goal, Show patient to take own pulse /validate performance until accurate, Instruct on home exercise and Other additional plan/int Physical Activity Home Exercise Physical Activity - Home Exercise: Safe Exercise, Warm-up, Self-monitoring, Cool-Down, Home Exercise > 30 min Daily and Sitting Time <3 hours/daily Outcomes & Goals Outcomes/Goals: Demonstrates correct Warm-up/exercise Cool-Down (S3) if = 2.5 METs, Verbalizes symptoms of exercise intolerance by Session 3 (S3), Demonstrate safe equipment use (S3) & follows exercise prescrition (6) and Other: See below Intervention & Plan Plan/Intervention: Instruct warm-up & cool-down if exercising at > 2 METs, Instruct on symptoms of exercise intolerance & actions to take, Instruct & monitor on saf, Assess intial functional capacity & safety risk and Other See below 30-day Reassessments 30 day Reassessments:: Progressing Reassessment Notes & Comments:: Proper warm up and cool down explained to pt. Pt demonstrates understanding in his daily sessions. Exercise - 90-day Assessment Physician Prescribed Exercise Modalities: SciFit Stepper, SciFit Pro-II Ergometer and SciFit Lateral Bead Forming Machine Set Up Operator Exercise - Final/Discharge Physician Prescribed Exercise Modalities: SciFit Stepper, SciFit Pro-II Ergometer and SciFit Lateral [place] Nutrition - 30-Day Assessment Weight Mgt (Other Care) Height: 6 ft Weight:: 307 lb BMI: 41.6 Nutrition - 60-Day Assessment Program Goals Nutrition Program Goals Patient has diagnosis of Hyperlipidemia (ICD E78)?: Yes Visit Date of Eval: 12/07/24 Session #:: 13 Cholesterol/Lipids (Other Core Measures) Determine presence & major risk factors that modify LDL goal: Cigarette smoking, Hypertension or hypertensive medication, Low HDL cholesterol <40 mg/dL*, Family history of premature CHD in Male < 55 years: female <65 yearsFa and Age men > 45 years; women >/= 55 years Outcomes/Goals: Pt IDs own risk factors & lifestyle modifications by Session 10, Verbalizes symptoms of angina & response by session 3., Pt independently manages and Other Additional Outcomes/Goals: Intervention/Plan: Advocate for lipid panel cholesterol medication if applicable, Instruct on personal lipid levels & lipid goals/NCEP guidelines, Instruct on cholesterol and Other additional plan/int Diabetes (Other Core Measures) Diabetes Type: Diagnosis Type II ICD-10 E11 Insulin dependent injection/pump?: No Non-Insulin Dependent?: Yes Do you monitor your blood sugar at home?: Yes Weight Mgt (Other Care) Height: 6 ft Weight:: 307 lb BMI: 41.6 Diagnosis Overweight/Obesity BMI> 30% ICD-10 E66: Yes Diagnosis High BMI/Morbid Obesity BMI> 35% ICD-10 Z68: Yes Outcomes/Goals: Pt sets, maintains & shows weight loss goal & trend during rehab and Other additional outcomes/goals Intervention/Plan: Instruct on ideal BMI & set weight loss goal w/patient, Assist pt to ID & incorporate diet changes for weight loss by S9, Refer to Structured Weight Loss program as appropriate, Encourage goal of using 250- 300dcal per session for weight loss and Other additional plan/interventions 30 day Reassessments:: Progressing Reassessment Notes & Comments:: Pt is scheduled to attend nutrition class next week. Our social worker will be here for the entire week. Healthy Eating Habits Will attend diet classes:: Yes Outcomes/Goals:: Consume diet rich in vegs,fruits,whole grain/high fiber,fis h,lean meat, Limit sat/trans fats,cholesterol & added salts & sugars and Other additional outcome/goals: Intervention/Plan:: Assess current eating habits and Other Additional p seble/interventions 30-day Reassessments:: Progressing Reassessment Notes & Comments:: Pt is scheduled to attend nutrition class next week. Our social worker will be here for the entire week. Low sodium heart healthy diet encouraged. Education Gave educational materials for:: Signs & symptoms of hypoglycemia, Signs & symptoms of hyperglycemia, Relate diabetes to coronary artery disease and Healthy eating Core - Final Assessment Tobacco Use How many cigarettes do you smoke per day?: 1 Years Smokin Hypertension Resting Blood Pressure:: 124/60 [place] [employer] Hypertension Guidelines Core - 60-Day Assessment Visit Date of Eval: 12/07/24 Session #:: 13 Medication Compliance Preventative Medication(s):: Aspirin, EARL inhibitor and Statin/lipid H/O mental health issues: depression, anxiety, or addiction?: No Doesn?t believe in the benefits of treatment?: No Believes medications are unnecessary or harmful?: No Has a concern about medication side effects?: No Expresses concern over the cost of medications?: No Outcomes/Goals: Verbalizes medications,desired effect & common side effects @ DC, Pt self-reports following medication regimen, Keeps card in wallet w/medications listed by DC and Other additional outcome/goals: Interventions/plans: Instruct on medication effects & side effects, Review medication list w/patient every two weeks, Instruct importance of taking meds as ordered & assist problem solving and Other additional Tobacco Use Tobacco Use: Cigarettes How many cigarettes do you smoke per day?: 1 Years Smokin Do you use smokeless tobacco?: No Outcomes/Goals: Smoking cessation achieved or maintained by discharge, Identify aids/strategies for achieving smoking cessation by session 6 and Other additional outcome/goals Interventions/plan: Instruct on effects of smoking & provide smoking cessation resource, Assist pt to set quit date & provide encouragement, Assist pt to develop strategies to achieve/maintain quit date, Assist pt w/nicotine replacement & medication for cessation success and Other additional plan/interventions 30-day Reassessments:: Progressing Reassessment Notes & Comments:: Pt encouraged to participate in 1 on 1 smoking cessation. Hypertension Hypertension Diagnosis:: Hypertension ICD-10 I10 Resting Blood Pressure:: 118/58 Resting Blood Pressure:: 124/60 [place] [employer] Hypertension Guidelines Peak Exercise Blood Pressure:: 130/62 Outcomes/Goals: Able to verbalize/achieve optimal blood pressure <130/80, Incorporates diet changes & exercise for blood pressure control by DC and Other additional outcomes/goals Interventions/plan: Instruct on optimal blood pressure, hypertension & medications, Instruct on effects of sodium, alcohol, stress, exercise &hypertension and Other additional plan/interventions 30 day Reassessments:: Met Reassessment Notes & Comments:: Pt's BP's are within AHA normal limits. Will continue to monitor and send report to pt's physician if necessary. Tobacco Cessation Referral Education Schedule Given:: Yes Psychosocial - 30-Day Assess Target Goals Target Goals Referral to Behavioral Health PS - Interventions: Yes: Attend Stress Management Classes Outcomes/Goals: See list Psychosocial Outcomes/Goals:: ID's personal stressors & 2 strategies to manage stress by discharge and Other Additional outcome/goals: Psychosocial - 60-Day Assess VIsit Date of Eval: 12/07/24 Session #:: 13 History of previous Mental disease:: No Target Goals Target Goals Psychosocial Test Tool Used:: PHQ-9 Questionnaire phq-9 Severity See PHQ-9 Score: 1 Referral to Behavioral Health PS - Interventions: Yes: Attend Stress Management Classes Outcomes/Goals: See list Psychosocial Outcomes/Goals:: ID's personal stressors & 2 strategies to manage stress by discharge and Other Additional outcome/goals: Intervention/Plan: See List Interventions/Plan:: Assess stressors,coping strategies & signs of derpression on admission, Instruct/assist pt to develop coping & personal stress Mgt strategies, Refer to Behavioral Health if appropriate, Refer to Physician if appropriate, Instruct patient to recognize signs & symptoms of depression, Instruct patient to recog and Other additional plan/intervention 30-day Reassessments: 30 day Reassessments:: Met Reassessment Notes & Comments:: Pt denies any psychosocial issues at this time. Pt to attend stress management class this week. Psychosocial - 90-Day Assess Target Goals Target Goals Referral to Behavioral Health PS - Interventions: Yes: Attend Stress Management Classes Psychosocial - Final Assessmen Target Goals Target Goals Referral to Behavioral Health PS - Interventions: Yes: Attend Stress Management Classes Nutrition - 90-Day Assessment Weight Mgt (Other Care) Height: 6 ft Weight:: 307 lb BMI: 41.6 Nutrition - Final Assessment Weight Mgt (Other Care) Height: 6 ft Weight:: 307 lb BMI: 41.6
[2024-12-07 08:05] VITALS: BP 118/58; BP 124/60; BMI 41.6
== END 2024-12-31 23:59 ==
LOC: CR 15:15
PROVIDERS: PCP Nurse Practitioner Family; Referring Provider Internal Medicine Cardiovascular Disease; Visit Provider Internal Medicine Cardiovascular Disease
DX: I35.0 Nonrheumatic aortic (valve) stenosis (principal); Z95.2 Presence of prosthetic heart valve
CPT/HCPCS: 93798

== ENCOUNTER 2025-01-29 15:15 | Outpatient (RCR) | payer MEDICARE, SELFPAY ==
[2024-12-07 08:05] VITALS: BMI 41.6
--- NOTE | 2025-01-05 08:47 | PCM.CR.ITP ---
Exercise - Initial Assessment Physician Prescribed Exercise Modalities: [employer] Stepper, [employer] Pro-II Ergometer and [employer] Lateral Sharepoint Designer Developer Nutrition - Initial Assessment Weight Mgt (Other Care) Height: 6 ft Weight:: 307 lb BMI: 41.6 Psychosocial - Initial Assess Target Goals Target Goals Referral to Behavioral Health PS - Interventions: Yes: Attend Stress Management Classes Patient Health Questionnaire PHQ-9 Screening 90-Day Re-eval Assessment: 1. Little interest or pleasure in doing things: Not at all 2. Feeling down, depressed, or hopeless: Not at all 3. Trouble falling or staying asleep, or sleeping too much: Not at all 4. Feeling tired or having little energy: Not at all 5. Poor appetite or overeating: Several days 6. Feeling bad about yourself -- or that you are a failure or have let yourself or your family down: Not at all 7. Trouble concentrating on things, such as reading the newspaper or watching television: Not at all 8. Moving or speaking so slowly that other people could have noticed. Or the opposite - being so fidgety or restless that you have been moving around a lot more than usual: Not at all 9. Thoughts that you would be better off , or of hurting yourself in some way: Not at all How difficult have these problems made it for you to do your work, take care of things at home, or get along with other people?: Somewhat difficult Total Score: 1 Self-Efficacy 6-Item Scale 90-Day Re-eval Assessment: We would like to know how confident you are in doing certain activities. Please select your confidence level for: Fatigue Select Number: 5 Physical Discomfort or Pain Select Number: 5 Emotional Distress Select Number: 6 Other Symptoms or Health Problems Select Number: 5 Different Tasks and Activities Select Number: 5 Medication Select Number: 5 Total Score:: 5 Nutrition Survey Nutrition Survey Instructions Scoring Instructions Nutrition Survey Discharge: Have you lost >10 lbs over the past 2 months without trying?: No Are you following a special diet at home for diabetes, low fat, or low salt?: No Are you interested in meeting with a dietitian for help understanding your diet?: No Do you eat less than 3 meals a day?: Yes Do you eat fatty meats (sapp, sausage, ribs, etc), fried foods, desserts, large amounts of salad dressings, margarine, butter, or cheese most days?: Yes Do you have food allergies? [Enter types in comment field]: No Do you eat in restaurants more than 3 times a week?: No Do you season food with salt, seasoning salt, or garlic salt?: No Do you used canned, boxed, frozen meals, or soups, seasoning packets?: Yes Total Score:: 3 Exercise - 30-day Assessment Physician Prescribed Exercise Modalities: SciFit Stepper, SciFit Pro-II Ergometer and SciFit Lateral [employer] Designer Developer Exercise - 60-day Assessment Physician Prescribed Exercise Modalities: SciFit Stepper, SciFit Pro-II Ergometer and SciFit Lateral Share[employer] Designer Developer Exercise - 90-day Assessment Visit Date of Eval: 01/05/25 Session #:: 20 Physician Prescribed Exercise Modalities: SciFit Stepper, SciFit Pro-II Ergometer and SciFit Lateral Share[employer] Designer Developer Frequency: 2x/week for 18 weeks [36 sessions] Intensity: 60-80% of age predicted maximum heart rate reserve Duration: 30 - 45 minutes METs - Progression 0.5-1.0 weekly:: 0.5-1.0 Current METSs:: 4 Target Heart Rate:: 88-117 Target RPE 12-16:: 12-16 Current RPE:: 12 Maximum Excercise HR:: 118 Resting Blood Pressure: 104/50 Maximum Exercise Blood Pressure: 118/48 EKG Type: SB to NSR with occ PACs/PVCs, oss ventricular bigeminy Current Physical Activity or Exercising minutes: 30-45 Outcomes & Goals Goals:: Verbalizes understanding of THR, RPE & goal METS by session 6, Documents in home exercise log/reports 30 min aerobic 5 day/wk by DC and Demonstrates accurate pulse taking by DC Intervention & Plan Exercise Program Goals: Instruct on personal THR & RPE, Instruct on MET level & personal MET goal, Show patient to take own pulse /validate performance until accurate and Instruct on home exercise 30-day Reassessments 30 day Reassessments:: Met Physical Activity Home Exercise Physical Activity - Home Exercise: Safe Exercise, Warm-up, Self-monitoring, Cool-Down, Home Exercise > 30 min Daily and Sitting Time <3 hours/daily Outcomes & Goals Outcomes/Goals: Demonstrates correct Warm-up/exercise Cool-Down (S3) if = 2.5 METs, Verbalizes symptoms of exercise intolerance by Session 3 (S3) and Demonstrate safe equipment use (S3) & follows exercise prescrition (6) Intervention & Plan Plan/Intervention: Instruct warm-up & cool-down if exercising at > 2 METs, Instruct on symptoms of exercise intolerance & actions to take, Instruct & monitor on saf and Assess intial functional capacity & safety risk 30-day Reassessments 30 day Reassessments:: Met Exercise - Final/Discharge Physician Prescribed Exercise Modalities: SciFit Stepper, [employer] Pro-II Ergometer and TheBlogTV Lateral [place] Nutrition - 30-Day Assessment Weight Mgt (Other Care) Height: 6 ft Weight:: 307 lb BMI: 41.6 Nutrition - 60-Day Assessment Weight Mgt (Other Care) Height: 6 ft Weight:: 307 lb BMI: 41.6 Core - 90 Day Assessment Visit Date of Eval: 01/05/25 Session #:: 20 Medication Compliance Preventative Medication(s):: Aspirin, EARL inhibitor and Statin/lipid H/O mental health issues: depression, anxiety, or addiction?: No Doesn?t believe in the benefits of treatment?: No Believes medications are unnecessary or harmful?: No Has a concern about medication side effects?: No Expresses concern over the cost of medications?: No Outcomes/Goals: Verbalizes medications,desired effect & common side effects @ DC, Pt self-reports following medication regimen and Keeps card in wallet w/medications listed by DC Interventions/plans: Instruct on medication effects & side effects, Review medication list w/patient every two weeks and Instruct importance of taking meds as ordered & assist problem solving 30-day Reassessments:: Met Tobacco Use Tobacco Use: Cigarettes How many cigarettes do you smoke per day?: 1 Years Smokin Do you use smokeless tobacco?: No Outcomes/Goals: Smoking cessation achieved or maintained by discharge and Identify aids/strategies for achieving smoking cessation by session 6 Interventions/plan: Instruct on effects of smoking & provide smoking cessation resource, Assist pt to set quit date & provide encouragement, Assist pt to develop strategies to achieve/maintain quit date and Assist pt w/nicotine replacement & medication for cessation success 30-day Reassessments:: Progressing Reassessment Notes & Comments:: PT attended smoking cessation class, pt encouraged to participate in 1 on smoking cessation Hypertension Hypertension Diagnosis:: Hypertension ICD-10 I10 Resting Blood Pressure:: 104/50 [place] [employer] Hypertension Guidelines Peak Exercise Blood Pressure:: 118/48 Outcomes/Goals: Able to verbalize/achieve optimal blood pressure <130/80 and Incorporates diet changes & exercise for blood pressure control by DC Interventions/plan: Instruct on optimal blood pressure, hypertension & medications and Instruct on effects of sodium, alcohol, stress, exercise &hypertension 30 day Reassessments:: Met Tobacco Cessation Referral Education Schedule Given:: Yes Psychosocial - 30-Day Assess Target Goals Target Goals Referral to Behavioral Health PS - Interventions: Yes: Attend Stress Management Classes Psychosocial - 60-Day Assess Target Goals Target Goals Referral to Behavioral Health PS - Interventions: Yes: Attend Stress Management Classes Psychosocial - 90-Day Assess VIsit Date of Eval: 01/05/25 Session #:: 20 History of previous Mental disease:: No Target Goals Target Goals Psychosocial Test Tool Used:: PHQ-9 Questionnaire phq-9 Severity See PHQ-9 Score: 1 Referral to Behavioral Health PS - Interventions: Yes: Attend Stress Management Classes Outcomes/Goals: See list Psychosocial Outcomes/Goals:: ID's personal stressors & 2 strategies to manage stress by discharge Intervention/Plan: See List Interventions/Plan:: Assess stressors,coping strategies & signs of derpression on admission, Instruct/assist pt to develop coping & personal stress Mgt strategies, Refer to Behavioral Health if appropriate, Refer to Physician if appropriate, Instruct patient to recognize signs & symptoms of depression and Instruct patient to recog 30-day Reassessments: 30 day Reassessments:: Met Reassessment Notes & Comments:: PT voices no psychosocial concerns or needs at this time. Psychosocial - Final Assessmen Target Goals Target Goals Referral to Behavioral Health PS - Interventions: Yes: Attend Stress Management Classes Nutrition - 90-Day Assessment Program Goals Nutrition Program Goals Patient has diagnosis of Hyperlipidemia (ICD E78)?: Yes Visit Date of Eval: 01/05/25 Session #:: 20 Cholesterol/Lipids (Other Core Measures) Triglycerides (mg/dL): 69 Total Cholesterol (mg/dL): 187 LDL Cholesterol (mg/dL): 118 HDL Cholesterol (mg/dL): 55 Lipid Medication: rosuvastatin 5mg QD Determine presence & major risk factors that modify LDL goal: Cigarette smoking, Hypertension or hypertensive medication, Low HDL cholesterol <40 mg/dL*, Family history of premature CHD in Male < 55 years: female <65 yearsFa and Age men > 45 years; women >/= 55 years Outcomes/Goals: Pt IDs own risk factors & lifestyle modifications by Session 10, Verbalizes symptoms of angina & response by session 3. and Pt independently manages Intervention/Plan: Advocate for lipid panel cholesterol medication if applicable and Instruct on personal lipid levels & lipid goals/NCEP guidelines 30-day Reassessments:: Progressing Reassessment Notes & Comments:: PT encouraged to discuss with physician in regards to obtaining lipid panel, pt taking statin as prescribed Diabetes (Other Core Measures) Diabetes Type: Diagnosis Type II ICD-10 E11 Fasting blood glucose:: 91 Hgb A1C (4.2 -6.3): 6.1 Insulin dependent injection/pump?: No Non-Insulin Dependent?: Yes Do you monitor your blood sugar at home?: Yes 30-day Reassessments:: Met Weight Mgt (Other Care) Height: 6 ft Weight:: 307 lb BMI: 41.6 Diagnosis Overweight/Obesity BMI> 30% ICD-10 E66: Yes Diagnosis High BMI/Morbid Obesity BMI> 35% ICD-10 Z68: Yes Outcomes/Goals: Pt sets, maintains & shows weight loss goal & trend during rehab Intervention/Plan: Instruct on ideal BMI & set weight loss goal w/patient, Assist pt to ID & incorporate diet changes for weight loss by S9, Refer to Structured Weight Loss program as appropriate and Encourage goal of using 250-300dcal per session for weight loss 30 day Reassessments:: Progressing Reassessment Notes & Comments:: Pt monitors weight weekly in rehab, pt encourage to incorporate diet and lifestyle changes to promote weight loss. Healthy Eating Habits Will attend diet classes:: Yes Outcomes/Goals:: Consume diet rich in vegs,fruits,whole grain/high fiber,fish,lean meat and Limit sat/trans fats,cholesterol & added salts & sugars Intervention/Plan:: Assess current eating habits 30-day Reassessments:: Met Education Gave educational materials for:: Signs & symptoms of hypoglycemia, Signs & symptoms of hyperglycemia, Relate diabetes to coronary artery disease and Healthy eating Nutrition - Final Assessment Weight Mgt (Other Care) Height: 6 ft Weight:: 307 lb BMI: 41.6
[2025-01-05 08:49] VITALS: BP 104/50
[2025-01-05 08:57] VITALS: BP 104/50; BMI 41.6
== END 2025-01-30 23:59 ==
LOC: CR 15:15
PROVIDERS: PCP Nurse Practitioner Family; Referring Provider Internal Medicine Cardiovascular Disease; Visit Provider Internal Medicine Cardiovascular Disease
DX: Z95.2 Presence of prosthetic heart valve (principal); I35.0 Nonrheumatic aortic (valve) stenosis
CPT/HCPCS: 93798

== ENCOUNTER 2025-03-02 15:15 | Outpatient (RCR) | payer MEDICARE, SELFPAY ==
[2025-01-16 09:31] VITALS: BMI 41.6
--- NOTE | 2025-01-31 11:17 | PCM.CR.ITP ---
Nutrition - Initial Assessment Weight Mgt (Other Care) Height: 6 ft Weight:: 307 lb BMI: 41.6 Psychosocial - Initial Assess Referral to Behavioral Health PS - Interventions: Yes: Attend Stress Management Classes Exercise - 90-day Assessment Visit Date of Eval: 01/31/25 Session #:: 27 (120 day ITP) Physician Prescribed Exercise Frequency: 2x/week for 18 weeks [36 sessions] Intensity: 60-80% of age predicted maximum heart rate reserve Duration: 30 - 45 minutes Current METSs:: 4.4 Target Heart Rate:: 88-124 Maximum Excercise HR:: 104 Resting Blood Pressure: 96/50 Maximum Exercise Blood Pressure: 118/50 EKG Type: Sinus arrhythmia, occ PVC, PAC Outcomes & Goals Goals:: Verbalizes understanding of THR, RPE & goal METS by session 6, Documents in home exercise log/reports 30 min aerobic 5 day/wk by DC, Demonstrates accurate pulse taking by DC and Other additional outcome/goals: see below Intervention & Plan Exercise Program Goals: Instruct on personal THR & RPE, Instruct on MET level & personal MET goal, Show patient to take own pulse /validate performance until accurate, Instruct on home exercise and Other additional plan/int Physical Activity Home Exercise Physical Activity - Home Exercise: Safe Exercise, Warm-up, Self-monitoring, Cool-Down, Home Exercise > 30 min Daily and Sitting Time <3 hours/daily Outcomes & Goals Outcomes/Goals: Demonstrates correct Warm-up/exercise Cool-Down (S3) if = 2.5 METs, Verbalizes symptoms of exercise intolerance by Session 3 (S3), Demonstrate safe equipment use (S3) & follows exercise prescrition (6) and Other: See below Intervention & Plan Plan/Intervention: Instruct warm-up & cool-down if exercising at > 2 METs, Instruct on symptoms of exercise intolerance & actions to take, Instruct & monitor on saf, Assess intial functional capacity & safety risk and Other See below 30-day Reassessments 30 day Reassessments:: Progressing Reassessment Notes & Comments:: Pt is progressing his exercise intensity. Will continue to encourage and increase intensity as tolerated. Nutrition - 30-Day Assessment Weight Mgt (Other Care) Height: 6 ft Weight:: 307 lb BMI: 41.6 Nutrition - 60-Day Assessment Weight Mgt (Other Care) Height: 6 ft Weight:: 307 lb BMI: 41.6 Core - 30-Day Assessment Hypertension [place] [employer] Hypertension Guidelines Reassessment Notes & Comments:: Pt's BP's are within AHA normal limits. Will continue to monitor and report to pt's physician if necessary. Core - Final Assessment Hypertension [place] [employer] Hypertension Guidelines Reassessment Notes & Comments:: Pt's BP's are within AHA normal limits. Will continue to monitor and report to pt's physician if necessary. Core - 90 Day Assessment Visit Date of Eval: 01/31/25 Session #:: 27 Medication Compliance Preventative Medication(s):: Aspirin, EARL inhibitor and Statin/lipid H/O mental health issues: depression, anxiety, or addiction?: No Doesn’t believe in the benefits of treatment?: No Believes medications are unnecessary or harmful?: No Has a concern about medication side effects?: No Expresses concern over the cost of medications?: No Outcomes/Goals: Verbalizes medications,desired effect & common side effects @ DC, Pt self-reports following medication regimen, Keeps card in wallet w/medications listed by DC and Other additional outcome/goals: Interventions/plans: Instruct on medication effects & side effects, Review medication list w/patient every two weeks, Instruct importance of taking meds as ordered & assist problem solving and Other additional 30-day Reassessments:: Met Reassessment Notes & Comments:: Pt is currently taking meds as prescribed. Tobacco Use Tobacco Use: Cigarettes How many cigarettes do you smoke per day?: 1 Years Smokin Outcomes/Goals: Smoking cessation achieved or maintained by discharge, Identify aids/strategies for achieving smoking cessation by session 6 and Other additional outcome/goals Interventions/plan: Instruct on effects of smoking & provide smoking cessation resource, Assist pt to set quit date & provide encouragement, Assist pt to develop strategies to achieve/maintain quit date, Assist pt w/nicotine replacement & medication for cessation success and Other additional plan/interventions 30-day Reassessments:: Progressing Reassessment Notes & Comments:: Pt to attend smoking cessation class. Pt encouraged to participate in 1 on 1 smoking cessation. Hypertension Hypertension Diagnosis:: Hypertension ICD-10 I10 Resting Blood Pressure:: 96/50 [place] [employer] Hypertension Guidelines Peak Exercise Blood Pressure:: 118/50 Outcomes/Goals: Able to verbalize/achieve optimal blood pressure <130/80, Incorporates diet changes & exercise for blood pressure control by DC and Other additional outcomes/goals Interventions/plan: Instruct on optimal blood pressure, hypertension & medications, Instruct on effects of sodium, alcohol, stress, exercise &hypertension and Other additional plan/interventions 30 day Reassessments:: Met Reassessment Notes & Comments:: Pt's BP's are within AHA normal limits. Will continue to monitor and report to pt's physician if necessary. Tobacco Cessation Referral Education Schedule Given:: Yes Psychosocial - 30-Day Assess Referral to Behavioral Health PS - Interventions: Yes: Attend Stress Management Classes Psychosocial - 60-Day Assess Referral to Behavioral Health PS - Interventions: Yes: Attend Stress Management Classes Psychosocial - 90-Day Assess VIsit Date of Eval: 01/31/25 Session #:: 27 History of previous Mental disease:: No Psychosocial Test Tool Used:: PHQ-9 Questionnaire phq-9 Severity See PHQ-9 Score: 1 Referral to Behavioral Health PS - Interventions: Yes: Attend Stress Management Classes Outcomes/Goals: See list Psychosocial Outcomes/Goals:: ID's personal stressors & 2 strategies to manage stress by discharge and Other Additional outcome/goals: Intervention/Plan: See List Interventions/Plan:: Assess stressors,coping strategies & signs of derpression on admission, Instruct/assist pt to develop coping & personal stress Mgt strategies, Refer to Behavioral Health if appropriate, Refer to Physician if appropriate, Instruct patient to recognize signs & symptoms of depression, Instruct patient to recog and Other additional plan/intervention 30-day Reassessments: 30 day Reassessments:: Met Reassessment Notes & Comments:: Pt denies any psychosocial issues at this time. Pt to attend stress management class. Will reassess every 30 days. Psychosocial - Final Assessmen Referral to Behavioral Health PS - Interventions: Yes: Attend Stress Management Classes Nutrition - 90-Day Assessment Program Goals Nutrition Program Goals Patient has diagnosis of Hyperlipidemia (ICD E78)?: Yes Visit Date of Eval: 01/31/25 Session #:: 27 (Nutrition survey score of 3.) Cholesterol/Lipids (Other Core Measures) Determine presence & major risk factors that modify LDL goal: Cigarette smoking, Hypertension or hypertensive medication, Low HDL cholesterol <40 mg/dL*, Family history of premature CHD in Male < 55 years: female <65 yearsFa and Age men > 45 years; women >/= 55 years Outcomes/Goals: Pt IDs own risk factors & lifestyle modifications by Session 10, Verbalizes symptoms of angina & response by session 3., Pt independently manages and Other Additional Outcomes/Goals: Intervention/Plan: Advocate for lipid panel cholesterol medication if applicable, Instruct on personal lipid levels & lipid goals/NCEP guidelines, Instruct on cholesterol and Other additional plan/int 30-day Reassessments:: Met Reassessment Notes & Comments:: Pt taking statin meds as prescribed. Diabetes (Other Core Measures) Diabetes Type: Diagnosis Type II ICD-10 E11 Fasting blood glucose:: 91 Hgb A1C (4.2 -6.3): 6.1 Insulin dependent injection/pump?: No Non-Insulin Dependent?: Yes Do you monitor your blood sugar at home?: Yes 30-day Reassessments:: Met Weight Mgt (Other Care) Height: 6 ft Weight:: 307 lb BMI: 41.6 Diagnosis Overweight/Obesity BMI> 30% ICD-10 E66: Yes Diagnosis High BMI/Morbid Obesity BMI> 35% ICD-10 Z68: Yes Outcomes/Goals: Pt sets, maintains & shows weight loss goal & trend during rehab and Other additional outcomes/goals Intervention/Plan: Instruct on ideal BMI & set weight loss goal w/patient, Assist pt to ID & incorporate diet changes for weight loss by S9, Refer to Structured Weight Loss program as appropriate, Encourage goal of using 250-300dcal per session for weight loss and Other additional plan/interventions 30 day Reassessments:: Progressing Reassessment Notes & Comments:: Pt has attended nutrition class. Pt understands the benefits of a hearth healthy low sodium diet. Pt encouraged to keep a food diary for our review. Healthy Eating Habits Will attend diet classes:: Yes Outcomes/Goals:: Consume diet rich in vegs,fruits,whole grain/high fiber,fish,lean meat, Limit sat/trans fats,cholesterol & added salts & sugars and Other additional outcome/goals: Intervention/Plan:: Assess current eating habits and Other Additional plan/interventions 30-day Reassessments:: Met Reassessment Notes & Comments:: Pt has attended nutrition class. Pt understands the benefits of a hearth healthy low sodium diet. Nutrition - Final Assessment Weight Mgt (Other Care) Height: 6 ft Weight:: 307 lb BMI: 41.6
[2025-01-31 11:38] VITALS: BP 96/50; BMI 41.6
--- NOTE | 2025-03-01 07:06 | CR.ITP_ITS ---
Exercise - Initial Assessment Physician Prescribed Exercise Modalities: SciFit Stepper and SciFit Pro-II Ergometer Nutrition - Initial Assessment Weight Mgt (Other Care) Height: 6 ft Weight:: 307 lb BMI: 41.6 Psychosocial - Initial Assess Referral to Behavioral Health PS - Interventions: Yes: Attend Stress Management Classes Exercise - 30-day Assessment Physician Prescribed Exercise Modalities: SciFit Stepper and SciFit Pro-II Ergometer Exercise - 60-day Assessment Physician Prescribed Exercise Modalities: SciFit Stepper and SciFit Pro-II Ergometer Exercise - 90-day Assessment Visit Date of Eval: 03/01/25 Session #:: 35 (150 da ITP. Pt comes 2 days a week.) Physician Prescribed Exercise Modalities: SciFit Stepper and SciFit Pro-II Ergometer Frequency: 2x/week for 18 weeks [36 sessions] Intensity: 60-80% of age predicted maximum heart rate reserve Duration: 30 - 45 minutes Current METSs:: 4.4 Target Heart Rate:: 88-124 Current RPE:: 12-13 Maximum Excercise HR:: 112 Resting Blood Pressure: 104/58 Maximum Exercise Blood Pressure: 132/76 EKG Type: Sinus arrythmia w/1st degree block, RBBB, occas PVC's/PAC's Outcomes & Goals Goals:: Verbalizes understanding of THR, RPE & goal METS by session 6, Documents in home exercise log/reports 30 min aerobic 5 day/wk by DC, Demonstrates accurate pulse taking by DC and Other additional outcome/goals: see below Intervention & Plan Exercise Program Goals: Instruct on personal THR & RPE, Instruct on MET level & personal MET goal, Show patient to take own pulse /validate performance until accurate, Instruct on home exercise and Other additional plan/int Physical Activity Home Exercise Physical Activity - Home Exercise: Safe Exercise, Warm-up, Self-monitoring, Cool-Down, Home Exercise > 30 min Daily and Sitting Time <3 hours/daily Outcomes & Goals Outcomes/Goals: Demonstrates correct Warm-up/exercise Cool-Down (S3) if = 2.5 METs, Verbalizes symptoms of exercise intolerance by Session 3 (S3), Demonstrate safe equipment use (S3) & follows exercise prescrition (6) and Other: See below Intervention & Plan Plan/Intervention: Instruct warm-up & cool-down if exercising at > 2 METs, Ins truct on symptoms of exercise intolerance & actions to take, Instruct & monitor on saf, Assess intial functional capacity & safety risk and Other See below 30-day Reassessments 30 day Reassessments:: Progressing Reassessment Notes & Comments:: Pt has 1 session remaining. Pt has met his exercise goals. Pt will be given his exercise prescription as well as community resources to continue his exercise. Exercise - Final/Discharge Physician Prescribed Exercise Modalities: SciFit Stepper and SciFit Pro-II Ergometer Nutrition - 30-Day Assessment Weight Mgt (Other Care) Height: 6 ft Weight:: 307 lb BMI: 41.6 Nutrition - 60-Day Assessment Weight Mgt (Other Care) Height: 6 ft Weight:: 307 lb BMI: 41.6 Core - 30-Day Assessment Hypertension [place] [employer] Hypertension Guidelines Reassessment Notes & Comments:: Pt's BP's are within AHA normal limits. Will continue to monitor and report to pt's physician if necessary. Core - Final Assessment Hypertension [place] [employer] Hypertension Guidelines Reassessment Notes & Comments:: Pt's BP's are within AHA normal limits. Will continue to monitor and report to pt's physician if necessary. Core - 90 Day Assessment Visit Date of Eval: 03/01/25 Session #:: 35 Medication Compliance Preventative Medication(s):: Aspirin, EARL inhibitor and Statin/lipid H/O mental health issues: depression, anxiety, or addiction?: No Doesn’t believe in the benefits of treatment?: No Believes medications are unnecessary or harmful?: No Has a concern about medication side effects?: No Expresses concern over the cost of medications?: No Outcomes/Goals: Verbalizes medications,desired effect & common side effects @ DC, Pt self-reports following medication regimen, Keeps card in wallet w/medications listed by DC and Other additional outcome/goals: Interventions/plans: Instruct on medication effects & side effects, Review medication list w/patient every two weeks, Instruct importance of taking meds as ordered & assist problem solving and Other additional 30-day Reassessments:: Met Tobacco Use Tobacco Use: Cigarettes How many cigarettes do you smoke per day?: 1 Years Smokin Outcomes/Goals: Smoking cessation achieved or maintained by discharge, Identify aids/strategies for achieving smoking cessation by session 6 and Other additional outcome/goals Interventions/plan: Instruct on effects of smoking & provide smoking cessation resource, Assist pt to set quit date & provide encouragement, Assist pt to develop strategies to achieve/maintain quit date, Assist pt w/nicotine replacement & medication for cessation success and Other additional plan/interventions 30-day Reassessments:: Progressing Reassessment Notes & Comments:: Pt has attended smoking cessation [facility] Hypertension Hypertension Diagnosis:: Hypertension ICD-10 I10 Resting Blood Pressure:: 104/58 [place] [employer] Hypertension Guidelines Peak Exercise Blood Pressure:: 132/76 Outcomes/Goals: Able to verbalize/achieve optimal blood pressure <130/80, Incorporates diet changes & exercise for blood pressure control by DC and Other additional outcomes/goals Interventions/plan: Instruct on optimal blood pressure, hypertension & medications, Instruct on effects of sodium, alcohol, stress, exercise &hypertension and Other additional plan/interventions 30 day Reassessments:: Met Reassessment Notes & Comments:: Pt's BP's are within AHA normal limits. Will continue to monitor and report to pt's physician if necessary. Tobacco Cessation Referral Education Schedule Given:: Yes Psychosocial - 30-Day Assess Referral to Behavioral Health PS - Interventions: Yes: Attend Stress Management Classes Psychosocial - 60-Day Assess Referral to Behavioral Health PS - Interventions: Yes: Attend Stress Management Classes Psychosocial - 90-Day Assess VIsit Date of Eval: 03/01/25 Session #:: 35 History of previous Mental disease:: No Psychosocial Test Tool Used:: [employer] QOL Cardiac and PHQ-9 Questionnaire phq-9 Severity See PHQ-9 Score: 1 Referral to Behavioral Health PS - Interventions: Yes: Attend Stress Management Classes Outcomes/Goals: See list Psychosocial Outcomes/Goals:: ID's personal stressors & 2 strategies to manage stress by discharge and Other Additional outcome/goals: Intervention/Plan: See List Interventions/Plan:: Assess stressors,coping strategies & signs of derpression on admission, Instruct/assist pt to develop coping & personal stress Mgt strategies, Refer to Behavioral Health if appropriate, Refer to Physician if appropriate, Instruct patient to recognize signs & symptoms of depression, Instruct patient to recog and Other additional plan/intervention 30-day Reassessments: 30 day Reassessments:: Met Reassessment Notes & Comments:: Pt denies any psychosocial issues at this time. Pt to attend stress management class. Will reassess every 30 days. Psychosocial - Final Assessmen Referral to Behavioral Health PS - Interventions: Yes: Attend Stress Management Classes Nutrition - 90-Day Assessment Program Goals Nutrition Program Goals Patient has diagnosis of Hyperlipidemia (ICD E78)?: Yes Visit Date of Eval: 03/01/25 Session #:: 35 Cholesterol/Lipids (Other Core Measures) Triglycerides (mg/dL): 69 Total Cholesterol (mg/dL): 187 LDL Cholesterol (mg/dL): 118 HDL Cholesterol (mg/dL): 55 Lipid Medication: rosuvastatin 5mg QD Determine presence & major risk factors that modify LDL goal: Cigarette smoking, Hypertension or hypertensive medication, Low HDL cholesterol <40 mg/dL*, Family history of premature CHD in Male < 55 years: female <65 yearsFa and Age men > 45 years; women >/= 55 years Outcomes/Goals: Pt IDs own risk factors & lifestyle modifications by Session 10, Verbalizes symptoms of angina & response by session 3., Pt independently manages and Other Additional Outcomes/Goals: Intervention/Plan: Advocate for lipid panel cholesterol medication if applicable, Instruct on personal lipid levels & lipid goals/NCEP guidelines, Instruct on cholesterol and Other additional plan/int Diabetes (Other Core Measures) Diabetes Type: Diagnosis Type II ICD-10 E11 Fasting blood glucose:: 91 Hgb A1C (4.2 -6.3): 6.1 Non-Insulin Dependent?: Yes Do you monitor your blood sugar at home?: Yes 30-day Reassessments:: Met Reassessment Notes & Comments:: A1C 6.1 Weight Mgt (Other Care) Height: 6 ft Weight:: 307 lb BMI: 41.6 Diagnosis Overweight/Obesity BMI> 30% ICD-10 E66: Yes Diagnosis High BMI/Morbid Obesity BMI> 35% ICD-10 Z68: Yes Outcomes/Goals: Pt sets, maintains & shows weight loss goal & trend during rehab and Other additional outcomes/goals Intervention/Plan: Instruct on ideal BMI & set weight loss goal w/patient, Assist pt to ID & incorporate diet changes for weight loss by S9, Refer to Structured Weight Loss program as appropriate, Encourage goal of using 250- 300dcal per session for weight loss and Other additional plan/interventions Healthy Eating Habits Will attend diet classes:: Yes Outcomes/Goals:: Consume diet rich in vegs,fruits,whole grain/high fiber,fish,lean meat, Limit sat/trans fats,cholesterol & added salts & sugars and Other additional outcome/goals: Intervention/Plan:: Assess current eating habits and Other Additional plan/interventions 30-day Reassessments:: Met Reassessment Notes & Comments:: Pt has attended nutrition class. Pt understands the benefits of a hearth healthy low sodium diet. Pt has been given the tools to eat a heart healthy diet. Education Gave educational materials for:: Signs & symptoms of hypoglycemia, Signs & symptoms of hyperglycemia, Relate diabetes to coronary artery disease and Healthy eating Nutrition - Final Assessment Weight Mgt (Other Care) Height: 6 ft Weight:: 307 lb BMI: 41.6
[2025-03-01 07:13] VITALS: BP 104/58
[2025-03-01 07:23] VITALS: BP 104/58; BMI 41.6
== END 2025-03-02 23:59 ==
LOC: CR 15:15
PROVIDERS: PCP Nurse Practitioner Family; Referring Provider Internal Medicine Cardiovascular Disease; Visit Provider Internal Medicine Cardiovascular Disease
DX: Z95.2 Presence of prosthetic heart valve (principal); I35.0 Nonrheumatic aortic (valve) stenosis
CPT/HCPCS: 93798

== ENCOUNTER → 2025-03-05 | Outpatient (CLI) | payer MEDICARE, SELFPAY ==
[2025-01-31 11:38] VITALS: BMI 41.6
[2025-03-01 07:23] VITALS: BMI 41.6
--- NOTE | 2025-03-05 13:25 | VDLE_ITS ---
Reason For Study Reason For Study: Swelling RLE RIGHT LEFT CFV is compressible, spontaneous, phasic, competent CFV is compressible, spontaneous, phasic, competent, and demonstrates normal augmentation. and demonstrates normal augmentation. FV is compressible, spontaneous, phasic, competent and demonstrates normal augmentation. POP V is compressible, spontaneous, phasic, competent and demonstrates normal augmentation. T/P Trunk is compressible. PTV is compressible. RT PerV is compressible. SFJ is competent and measures 0.68cm x 0.64 cm. GSV proximal thigh measures 0.40cm x 0.42 cm. GSV at knee measures 0.31cm x 0.31 cm. GSV above knee is competent. GSV below knee is INCOMPETENT for greater than 0.5 seconds. SSV mid calf is competent and measures 0.30cm x 0.35 cm. Procedure This is a venous duplex using B-mode, color flow and spectral Doppler. Exam performed in department. A preliminary report was called and/or faxed to Aaron Glynn NP. VL/Venous Duplex US, Unilateral Interpretation Summary Deep veins of the right lower extremity are patent and compressible segmentally . There is no evidence of right lower extremity deep vein thrombosis. Valvular competence appears intact within the p roximal deep venous system on the right . The right great saphenous vein appears patent and compressible segmentally. The right sapheno-femoral junction is competent . The right great saphenous vein appears competent above the knee. Th e right great saphenous vein appears incompetent below the knee. The right small saphenous vein is patent and compet ent. The left common femoral vein is patent and compressible . Ordering Physician: Aaron Glynn Referring Physician: Desiree Larsen Performed By: Lucita Glynn, RDCS, RVT
== END | disposition home or self-care (01) ==
LOC: CVS 13:24
PROVIDERS: PCP Nurse Practitioner Family; Referring Provider Nurse Practitioner Family; Visit Provider Nurse Practitioner Family
DX: M79.89 Other specified soft tissue disorders (principal); I73.9 Peripheral vascular disease, unspecified; R60.9 Edema, unspecified; I35.0 Nonrheumatic aortic (valve) stenosis
CPT/HCPCS: 93971

== ENCOUNTER → 2025-03-06 | Outpatient (CLI) | payer MEDICARE, SELFPAY ==
[2025-01-31 11:38] VITALS: BMI 41.6
[2025-03-01 07:23] VITALS: BMI 41.6
--- NOTE | 2025-03-06 15:19 | MRI_ITS ---
PROCEDURE: SPINE LUMBAR (ROUTINE) 03/06/2025 REASON FOR EXAM: LUMBAR RADICULOPATHY Personal history of chronic back pain that is throbbing. Prior disc surgery in the . Personal history of diabetes and bladder malignancy. TECHNIQUE: Procedure Code: MRISPL Modality: MR Procedure: SPINE LUMBAR (ROUTINE) COMPARISON: June 08, 2024, February 01, 2023 FINDINGS: Vertebrae: Vertebral body height is preserved. No bone marrow edema is present. Alignment: Mild straightening of the lordosis. No spondylolisthesis. Conus Medullaris: Terminates at L1. No abnormal signal. L1-2: Minimal facet hypertrophy and minimal thickening of ligamentum flavum. No central stenosis or exit foraminal narrowing. No evidence of disc desiccation. L2-3: Minimal facet hypertrophy and minimal thickening of ligamentum flavum. No central stenosis or exit foraminal narrowing. No evidence of disc desiccation. L3-4: No significant disc desiccation. Mild, diffuse disc bulge. Moderate thickening of ligamentum flavum. Mild bilateral facet hypertrophy. No central stenosis. Minimal, borderline exit foraminal narrowing from disc and facet disease. Correlate with L3 radiculopathy bilaterally. Very similar to prior. L4-5: No significant disc desiccation. Mild, diffuse disc bulge. [id number] thickening of ligamentum flavum. Mild bilateral facet hypertrophy, [id number]-left. Minimal right exit foraminal narrowing; the exiting nerve root abuts the facet. Correlate with possible right L4 radiculopathy. L5-S1: Moderate loss of disc height. Some disc desiccation is seen. Mild, broad-based disc osteophyte protrusion central to right paracentral is present. This appears to abut the traversing right S1 nerve root in the sub foraminal zone. Exit foramina are borderline narrowed, but there is fat around the exiting nerve roots. Correlate with possible L5 radiculopathy. There has possibly been a remote laminotomy on the right side. Correlate with prior surgical history. Sacrum: Unremarkable Likely bone island right S1 vertebral body and left sacrum. MRI/Spine Lumbar (Routine) IMPRESSION: 1. Mild degenerative changes mainly in the lower lumbar spine greatest at L5/S 1. See above descriptions. Reading Location: [facility]
== END | disposition home or self-care (01) ==
LOC: MRI 15:16
PROVIDERS: PCP Nurse Practitioner Family; Referring Provider Orthopaedic Surgery Orthopaedic Surgery of the Spine; Visit Provider Orthopaedic Surgery Orthopaedic Surgery of the Spine
DX: M54.16 Radiculopathy, lumbar region (principal)
CPT/HCPCS: 72148